=== PATIENT | male | born 1940 | race Caucasian/White ===

== ENCOUNTER 2023-03-26 19:53 | Emergency (ER) | payer OTHER ==
[~2023-03-26] VITALS: Ht 182.9 cm; Wt 176.0 kg
[2023-03-26 20:36] LABS: Basophils # (auto) 0.1 10 ^3/uL (0-0.2); Basophils % (auto) 0.9 % (0.0-2.0); Eosinophils # (auto) 0.2 10 ^3/uL (0-0.8); Eosinophils % (auto) 1.6 % (0.0-7.0); Hemoglobin 13.8 g/dL (13.5-17.5); Lymphocytes # (auto) 2.8 10 ^3/uL (0.4-5.4); Lymphocytes % (auto) 28.9 % (10.0-50.0); Mean Corpuscular Hemoglobin 31.2 pg (28.0-32.0); Mean Corpuscular Volume 94.8 fL (80.0-100.0); Monocytes # (auto) 0.8 10 ^3/uL (0-1.3); Monocytes % (auto) 8.4 % (0.0-12.0); Neutrophils # (auto) 5.8 10 ^3/uL (1.6-8.6); Neutrophils % (auto) 60.2 % (37.0-80.0); Red Blood Cells 4.43 10^6/uL (4.5-5.90); Red Cell Distribution Width 15.9 % (11.8-14.3); White Blood Cell 9.6 10^3/uL (4.4-10.8)
[2023-03-26 20:44] LABS: Urine Bacteria NONE SEEN /hpf (None Seen); Urine Blood Negative /uL (Negative); Urine Clarity Clear (Clear); Urine Color Yellow (Yellow); Urine Hyaline Cast FEW /lpf (0 - 2); Urine Protein, UAD Negative (Negative); Urine Specific Gravity 1.018 (1.001-1.035); Urine Urobilinogen Normal (Negative); Urine WBC <1 /hpf (0 - 3)
[2023-03-26 21:05] LABS: Alanine Aminotransferase 14 U/L (7-40); Albumin 4.2 g/dL (3.2-4.8); Alkaline Phosphatase 137 U/L (46-116); Anion Gap 6.3 (5-15); Aspartate Aminotransferase 10 U/L (13-40); BUN/Creatinine Ratio 22.4 (10.0-20.0); Bilirubin, Total 0.4 mg/dL (0.2-1.0); Blood Urea Nitrogen 36 mg/dL (9-23); Calcium 9.2 mg/dL (8.5-10.1); Carbon Dioxide 28.7 mmol/L (20-30); Chloride 109 mmol/L (98-107); Glucose 121 mg/dL (74-106); Magnesium 2.3 mg/dL (1.6-2.6); Sodium 144 mmol/L (136-145); Total Protein 6.5 g/dL (5.7-8.2)
[2023-03-27 00:25] VITALS: BP 115/55; PULSE 80; RESP 18; TEMP 98.3; O2SAT 94
== END 2023-03-27 02:24 | disposition home or self-care (01) ==
LOC: ER 19:53
DX: R07.89 Other chest pain (principal); E11.22 Type 2 diabetes mellitus with diabetic chronic kidney disease; I12.9 Hypertensive chronic kidney disease with stage 1 through stage 4 chronic kidney disease, or unspecified chronic kidney disease; N18.9 Chronic kidney disease, unspecified; Z95.0 Presence of cardiac pacemaker
CPT/HCPCS: 36415; 71046; 80053; 81001; 83735; 84443; 84484; 85025; 93005

== ENCOUNTER 2023-11-30 07:21 | Inpatient (IN) | payer OTHER ==
[~2023-11-30] VITALS: Ht 182.9 cm; Wt 85.6 kg
[2023-11-30 07:48] LABS: Basophils # (auto) 0 10 ^3/uL (0-0.2); Basophils % (auto) 0.4 % (0.0-2.0); Eosinophils # (auto) 0 10 ^3/uL (0-0.8); Eosinophils % (auto) 0.1 % (0.0-7.0); Hematocrit 41.2 % (41.0-53.0); Hemoglobin 13.5 g/dL (13.5-17.5); Lymphocytes # (auto) 1.7 10 ^3/uL (0.4-5.4); Lymphocytes % (auto) 14.2 % (10.0-50.0); Mean Corpuscular Hgb Conc. 32.7 g/dL (32.0-36.0); Mean Corpuscular Volume 94.7 fL (80.0-100.0); Monocytes # (auto) 1.6 10 ^3/uL (0-1.3); Monocytes % (auto) 13.4 % (0.0-12.0); Neutrophils # (auto) 8.8 10 ^3/uL (1.6-8.6); Neutrophils % (auto) 71.9 % (37.0-80.0); Red Blood Cells 4.35 10^6/uL (4.5-5.90); Red Cell Distribution Width 15.4 % (11.8-14.3); White Blood Cell 12.2 10^3/uL (4.4-10.8)
[2023-11-30 08:17] LABS: Alanine Aminotransferase 12 U/L (7-40); Alkaline Phosphatase 94 U/L (46-116); Aspartate Aminotransferase 27 U/L (13-40); BUN/Creatinine Ratio 13.6 (10.0-20.0); Bilirubin, Total 0.6 mg/dL (0.2-1.0); Blood Urea Nitrogen 24 mg/dL (9-23); Calcium 8.8 mg/dL (8.5-10.1); Chloride 112 mmol/L (98-107); Glucose 197 mg/dL (74-106); Potassium 3.7 mmol/L (3.5-5.1); Sodium 144 mmol/L (136-145)
[2023-11-30 08:18] LABS: Total Protein 6.6 g/dL (5.7-8.2)
[2023-11-30] MEDS: ENOXAPARIN SOD 100 MG/1 ML SYRINGE SC ONE (08:45)
[2023-11-30 08:46] LABS: Anion Gap 8 (5-15); Carbon Dioxide 24 mmol/L (20-30)
[2023-11-30] MEDS: ALBUTEROL SULF 2.5 MG/0.5ML(0.5%) NEB SOLN NEB ONE (08:50)
[2023-11-30] MEDS: IPRATROPIUM BROM 0.5 MG/2.5ML INH SOL NEB ONE (08:50)
[2023-11-30] MEDS: methylPREDNISolone SOD SUCC 125 MG/2 ML VL IV ONE (09:13)
[2023-11-30] MEDS: AZITHROMYCIN 500MG/ 250ML 250 ML IV ONE (09:13)
[2023-11-30 09:31] VITALS: PULSE 78; RESP 26; O2SAT 91
[2023-11-30] MEDS: PIPERACILLIN-TAZOB 3.375GM 100 ML IV ONE (09:55)
[2023-11-30] MEDS ORDERED: DEXTROSE (50%) 50ML SYRG IV PRN ×2 (12:00→12:15)
[2023-11-30] MEDS ORDERED: IPRATROPIUM BROM 0.5 MG/2.5ML INH SOL NEB PRN ×2 (12:00→12:15)
[2023-11-30] MEDS ORDERED: MORPHINE SULFATE INJ 2 MG/ml SYRG IV PRN ×2 (12:00→12:15)
[2023-11-30] MEDS ORDERED: ALBUTEROL SULF 2.5 MG/0.5ML(0.5%) NEB SOLN NEB PRN ×2 (12:00→12:15)
[2023-11-30] MEDS ORDERED: NITROGLYCERIN 0.4 MG SL TAB SL PRN ×2 (12:00→12:15)
[2023-11-30] MEDS ORDERED: TEMAZEPAM 15 MG CAP PO PRN ×2 (12:15→12:30)
[2023-11-30] MEDS ORDERED: ACETAMINOPHEN 325 MG TAB PO PRN ×2 (12:15→12:30)
[2023-11-30] MEDS ORDERED: LEVOTHYROXINE SODIUM 50 MCG TAB PO ONE (12:15)
[2023-11-30] MEDS ORDERED: amLODIPine BESYLATE 5 MG TAB PO ONE (12:15)
[2023-11-30] MEDS ORDERED: ONDANSETRON HCL 4 MG/2 ML VIAL IV PRN ×2 (12:15→12:30)
[2023-11-30 12:45] VITALS: BP 127/54; PULSE 72; RESP 27; TEMP 98.8; O2SAT 93
[2023-11-30] MEDS: LEVOTHYROXINE SODIUM 50 MCG TAB PO ONE (13:05)
[2023-11-30] MEDS: amLODIPine BESYLATE 5 MG TAB PO ONE (13:08)
[2023-11-30] MEDS ORDERED: InsuLIN REG 1unit/0.01ml Soln (100units/ml) SC SCH (17:00)
[2023-11-30] MEDS ORDERED: ACCU-CHEK COMFORT CURVE STRIP VI SCH (17:00)
[2023-11-30] MEDS: InsuLIN REG 1unit/0.01ml Soln (100units/ml) SC SCH (17:46)
[2023-11-30] MEDS: ACCU-CHEK COMFORT CURVE STRIP VI SCH (17:48)
[2023-11-30 18:00] VITALS: O2SAT 94
[2023-11-30] MEDS ORDERED: FUROSEMIDE 40 MG/4 ML VIAL IV SCH (18:00)
[2023-11-30] MEDS: FUROSEMIDE 40 MG/4 ML VIAL IV SCH (18:23)
[2023-11-30] MEDS ORDERED: methylPREDNISolone SOD SUCC 40 MG/ML VL IV SCH (22:00)
[2023-11-30] MEDS ORDERED: ATORVASTATIN 20 MG TAB PO SCH (22:00)
[2023-11-30] MEDS ORDERED: APIXABAN 2.5 MG TAB PO SCH (22:00)
[2023-11-30] MEDS ORDERED: CARVEDILOL 3.125 MG TAB PO SCH (22:00)
[2023-11-30] MEDS: ATORVASTATIN 20 MG TAB PO SCH (23:10)
[2023-11-30] MEDS: APIXABAN 2.5 MG TAB PO SCH (23:11)
[2023-11-30] MEDS: methylPREDNISolone SOD SUCC 40 MG/ML VL IV SCH (23:14)
[2023-11-30] MEDS: CARVEDILOL 3.125 MG TAB PO SCH (23:14)
[2023-12-01] VITALS (10 sets, daily range): BP systolic 104–122; BP diastolic 59–78; PULSE 65–94; RESP 18–20; TEMP 97.6–98.6; O2SAT 92–100
[2023-12-01] MEDS ORDERED: LEVOTHYROXINE SODIUM 50 MCG TAB PO SCH (07:00)
[2023-12-01] MEDS: cefTRIAXone 1GM/50ML D5W 50 ML IV SCH (07:19)
[2023-12-01] MEDS: LEVOTHYROXINE SODIUM 50 MCG TAB PO SCH (07:21)
[2023-12-01] MEDS: PANTOPRAZOLE 40 MG TAB PO SCH (07:21)
[2023-12-01] MEDS: amLODIPine BESYLATE 5 MG TAB PO SCH (07:24)
[2023-12-01] MEDS: AZITHROMYCIN 500MG/ 250ML 250 ML IV SCH (07:28)
[2023-12-01 07:54] LABS: Basophils # (auto) 0 10 ^3/uL (0-0.2); Eosinophils # (auto) 0 10 ^3/uL (0-0.8); Hematocrit 40.5 % (41.0-53.0); Hemoglobin 13.4 g/dL (13.5-17.5); Lymphocytes # (auto) 1.7 10 ^3/uL (0.4-5.4); Lymphocytes % (auto) 13.1 % (10.0-50.0); Mean Corpuscular Hemoglobin 31.5 pg (28.0-32.0); Mean Corpuscular Volume 95.4 fL (80.0-100.0); Monocytes # (auto) 0.5 10 ^3/uL (0-1.3); Monocytes % (auto) 4.1 % (0.0-12.0); Neutrophils # (auto) 10.6 10 ^3/uL (1.6-8.6); Neutrophils % (auto) 82.8 % (37.0-80.0); Red Blood Cells 4.24 10^6/uL (4.5-5.90); Red Cell Distribution Width 15.2 % (11.8-14.3); White Blood Cell 12.8 10^3/uL (4.4-10.8)
[2023-12-01 08:14] LABS: Alanine Aminotransferase 13 U/L (7-40); Albumin 3.9 g/dL (3.2-4.8); Alkaline Phosphatase 89 U/L (46-116); Anion Gap 5 (5-15); Aspartate Aminotransferase 24 U/L (13-40); BUN/Creatinine Ratio 17.5 (10.0-20.0); Bilirubin, Total 0.3 mg/dL (0.2-1.0); Calcium 9.1 mg/dL (8.5-10.1); Carbon Dioxide 27 mmol/L (20-30); Chloride 112 mmol/L (98-107); Cholesterol 169 mg/dL (< 200); Glucose 209 mg/dL (74-106); HDL Cholesterol 36 mg/dL (40-59); LDL Cholesterol 108 mg/dL (< 100); Potassium 5.2 mmol/L (3.5-5.1); Sodium 144 mmol/L (136-145); Total Protein 6.5 g/dL (5.7-8.2); Triglycerides 135 mg/dL (< 150)
[2023-12-01 08:19] LABS: Blood Urea Nitrogen 34 mg/dL (9-23)
[2023-12-01] MEDS ORDERED: cefTRIAXone 1GM/50ML D5W 50 ML IV SCH (09:00)
[2023-12-01 09:17] LABS: Magnesium 2.4 mg/dL (1.6-2.6)
[2023-12-01] MEDS ORDERED: amLODIPine BESYLATE 5 MG TAB PO SCH (10:00)
[2023-12-01] MEDS ORDERED: PANTOPRAZOLE 40 MG TAB PO SCH (10:00)
[2023-12-01] MEDS ORDERED: ENOXAPARIN SOD 100 MG/1 ML SYRINGE SC SCH (10:00)
[2023-12-01] MEDS ORDERED: AZITHROMYCIN 500MG/ 250ML 250 ML IV SCH (10:00)
[2023-12-01] MEDS: FUROSEMIDE 20 MG TAB PO SCH (12:41)
[2023-12-01 14:28] LABS: Base Excess -0.5 mmol/L (-2.0-2.0)
[2023-12-02] VITALS (9 sets, daily range): BP systolic 105–132; BP diastolic 64–72; PULSE 67–77; RESP 18–20; TEMP 97.7–97.9; O2SAT 90–96
[2023-12-02 09:49] LABS: Base Excess 0.4 mmol/L (-2.0-2.0)
[2023-12-03] VITALS (10 sets, daily range): BP systolic 127–155; BP diastolic 70–81; PULSE 63–71; RESP 18–20; TEMP 79.9–98; O2SAT 90–97
[2023-12-03] MEDS ORDERED: LEVO150T10 PO (15:55)
[2023-12-03] MEDS ORDERED: SITA50TA PO (15:55)
[2023-12-04] VITALS (9 sets, daily range): BP systolic 130–157; BP diastolic 57–75; PULSE 64–83; RESP 16–19; TEMP 97.4–97.8; O2SAT 91–99
[2023-12-05] VITALS (7 sets, daily range): BP systolic 136–158; BP diastolic 63–83; PULSE 71–75; RESP 16–20; TEMP 97.1–98.6; O2SAT 95–96
[2023-12-05] MEDS ORDERED: APIX2.5T PO (12:01)
[2023-12-05] MEDS ORDERED: METH4PAK PO (12:01)
[2023-12-05] MEDS ORDERED: ATOR20TA50 PO (12:01)
[2023-12-05] MEDS ORDERED: CARV-214 PO (12:01)
[2023-12-05] MEDS ORDERED: AML5T PO (12:01)
== END 2023-12-05 16:55 | disposition home or self-care (01) | DRG 189 ==
LOC: EDUNIT# 07:21 → ER 07:21 → EDBD 07:21 → ER 12:03 → TELE 12:03 → TELE-EAST 22:00
PROVIDERS: ADMIT Internal Medicine Geriatric Medicine; ATTEND Internal Medicine Geriatric Medicine
PROC: 4B02XSZ Measurement of Cardiac Pacemaker, External Approach (ICD-10-PCS; principal; 2023-12-02)
DX: J96.21 Acute and chronic respiratory failure with hypoxia (principal); I21.A1 Myocardial infarction type 2; J44.1 Chronic obstructive pulmonary disease with (acute) exacerbation; I48.92 Unspecified atrial flutter; J96.22 Acute and chronic respiratory failure with hypercapnia; I48.91 Unspecified atrial fibrillation; H54.61 Unqualified visual loss, right eye, normal vision left eye; E78.5 Hyperlipidemia, unspecified; E11.22 Type 2 diabetes mellitus with diabetic chronic kidney disease; E03.9 Hypothyroidism, unspecified; C61 Malignant neoplasm of prostate; I08.1 Rheumatic disorders of both mitral and tricuspid valves; N18.9 Chronic kidney disease, unspecified; Z79.899 Other long term (current) drug therapy; Z95.0 Presence of cardiac pacemaker; Z95.2 Presence of prosthetic heart valve
CPT/HCPCS: 36415; 36600; 71045; 78582; 80053; 80061; 82565; 82805; 82962; 83605; 83735; 83880; 84443; 84484; 85025; 85379; 87040; 93005; 93306; 94640; 96365; 96375; G0378; J1815; J2543

== ENCOUNTER 2024-10-13 09:54 | Inpatient (IN) | payer OTHER ==
[~2024-10-13] VITALS: Ht 177.8 cm; Wt 92.6 kg
[2024-10-13] MEDS: ALBUTEROL SULF 2.5 MG/0.5ML(0.5%) NEB SOLN ONE (09:43)
[~2024-10-13 09:54] MED LIST: AML5T PO; APIX2.5T PO; ATOR20TA50 PO; CARV-214 PO; LEVO150T10 PO; METH4PAK PO; SITA50TA PO
--- NOTE | 2024-10-13 10:21 | ED.PDOC ---
SOB-HPI HPI Comments 84-year-old male brought in by EMS presents with a chief complaint of SOB x 5 days with associated wheezing. Patient was seen at [facility] and was told to go to the ER due to his saturation levels. Patient was sating at 80% on room air according to EMS. Patient was given a breathing treatment of Albuterol and Atrovent and is not working so hard to breathe according to EMS. Patient is now sating at 83% on room air. Patient is on Eliquis for A-Fib. Chief Complaint: Shortness of Breath Time Seen by MD: 10:53 Primary Care Provider: KERA Reviewed notes: Medications, Allergies Information Source: Patient Mode of Arrival: Ambulatory Severity: Moderate Timing: Days Duration: Since onset Context: At Rest PE Risk Factors: None History of: COPD, CHF Prehospital treatment: Breathing Tx Past Medical History PAST MEDICAL HISTORY: CKF, COPD, DM, HTN, Thyroid Surgical History: Pacemaker Family History Family History: Reviewed,noncontributory to illness Social History Smoker: Non-Smoker Alcohol: Denies ETOH Use Drugs: Denies Drug Use Lives In: Home Constitutional: denies: chills, diaphoresis, fatigue, fever, malaise, sweats, weakness, others EENTM: denies: blurred vision, double vision, ear bleeding, ear discharge, ear drainage, ear pain, ear ringing, eye pain, eye redness, hearing loss, mouth pain, mouth swelling, nasal discharge, nose bleeding, nose congestion, nose pain, photophobia, tearing, throat pain, throat swelling, voice changes, others Respiratory: reports: shortness of breath, wheezing; denies: cough, hemoptysis, orthopnea, SOB at rest, SOB with excertion, stridor, others Cardiovascular: denies: chest pain, dizzy spells, diaphoresis, Dyspnea on exertion, edema, irregular heart beat, left arm pain, lightheadedness, palpitations, PND, syncope, others Gastrointestinal: denies: abdomen distended, abdominal pain, blood streaked bowels, constipated, diarrhea, dysphagia, difficulty swallowing, hematemesis, melena, nausea, poor appetite, poor fluid intake, rectal bleeding, rectal pain, vomiting, others Genitourinary: denies: burning, dysuria, flank pain, frequency, hematuria, incontinence, penile discharge, penile sore, pain, testicle pain, testicle swelling, urgency, others Neurological: denies: dizziness, fainting, headache, left sided numbness, left sided weakness, numbness, paresthesia, pre-existing deficit, right sided numbness, right sided weakness, seizure, speech problems, tingling, tremors, weakness, others Musculoskeletal: denies: back pain, gout, joint pain, joint swelling, muscle pain, muscle stiffness, neck pain, others Integumetry: denies: bruises, change in color, change in hair/nails, dryness, laceration, lesions, lumps, rash, wounds, others Allergic/Immunocompromised: denies: Difficulty Healing, Frequent Infections, Hi ves, Itching, others Hematologic/Lymphatic: denies: anemia, blood clots, easy bleeding, easy bruising, swollen glands, others Endocrine: denies: excessive hunger, excessive sweating, excessive thirst, excessive urination, flushing, intolerance to cold, intolerance to heat, unexplained weight gain, unexplained weight loss, others Psychiatric: denies: anxiety, bipolar disorder, depression, hopeless, panic disorder, schizophrenia, sleepless, suicidal, others All Other Systems: Reviewed and Negative Physical Exam General Appearance: Moderate Distress, Obese HEENT: NOT DONE Neck: NOT DONE Respiratory: Wheezing Cardiovascular: No Edema, No JVD, No Murmur, No Gallop, Normal Peripheral Pulses, Regular Rate/Rhythm Breast Exam: Deferred Gastrointestinal: No Organomegaly, Non Tender, No Pulsatile Mass, Normal Bowel Sounds, Soft Genitalia: Deferred Pelvic: Deferred Rectal: Deferred Extremities: No calf tenderness, Normal capillary refill, Normal inspection, Normal range of motion, Non-tender, No pedal edema Neurologic: Alert, charcoal unloader II-XII nml as Tested, No Motor Deficits, Normal Affect, Normal Mood, No Sensory Deficits Cerebellar Function: Normal Reflexes: Normal Skin: Dry, Normal Color, Warm Lymphatic: No Adenopathy Was a procedure done? Was a procedure done?: No Differential Dx Differential Diagnosis: Cardiogenic Shock, CHF, COPD, Myocardial infarction, Pneumonia, Sinusitis, URI X-Ray, Labs, Meds, VS Vital Signs Date Time Temp Pulse Resp B/P (MAP) Pulse Ox O2 Delivery O2 Flow Rate FiO2 10/13/24 12:00 97.6 82 24 149/51 (83) 93 97.6 10/13/24 10:57 131/57 10/13/24 10:48 24 94 Nasal Cannula* 3 32 10/13/24 10:25 79 20 95 Nasal Cannula* 3 32 10/13/24 10:25 97.9 79 20 131/57 (81) 95 97.9 10/13/24 10:23 79 18 131/57 (81) 92 10/13/24 10:13 98.2 74 24 134/60 (84) 95 10/13/24 10:10 25 95 Simple Mask* 8 60 10/13/24 10:02 76 Lab Test 10/13/24 11:57 10/13/24 10:40 10/13/24 10:32 Range/Units Troponin I High Sensitivity 10 11 </=54 ng/L Influenza Type A Antigen Negative Negative Influenza Type B Antigen Negative Negative SARS-CoV-2 Antigen (Rapid) Negative NEGATIVE White Blood Count 9.5 4.4-10.8 10^3/uL Red Blood Count 4.42 L 4.5-5.90 10^6/uL Hemoglobin 13.6 13.5-17.5 g/dL Hematocrit 42.0 41.0-53.0 % Mean Corpuscular Volume 94.9 80.0-100.0 fL Mean Corpuscular Hemoglobin 30.8 28.0-32.0 pg Mean Corpuscular Hemoglobin Concent 32.5 32.0-36.0 g/dL Red Cell Distribution Width 15.9 H 11.8-14.3 % Platelet Count 254 140-450 10^3/uL Mean Platelet Volume 7.6 6.9-10.8 fL Neutrophils (%) (Auto) 65.6 37.0-80.0 % Lymphocytes (%) (Auto) 22.0 10.0-50.0 % Monocytes (%) (Auto) 11.0 0.0-12.0 % Eosinophils (%) (Auto) 0.9 0.0-7.0 % Basophils (%) (Auto) 0.5 0.0-2.0 % Neutrophils # (Auto) 6.2 1.6-8.6 10 ^3/uL Lymphocytes # (Auto) 2.1 0.4-5.4 10 ^3/uL Monocytes # (Auto) 1.0 0-1.3 10 ^3/uL Eosinophils # (Auto) 0.1 0-0.8 10 ^3/uL Basophils # (Auto) 0.1 0-0.2 10 ^3/uL Nucleated Red Blood Cells 0.0 % Sodium Level 147 H 136-145 mmol/L Potassium Level 4.0 3.5-5.1 mmol/L Chloride Level 109 H 98-107 mmol/L Carbon Dioxide Level 30 20-31 mmol/L Anion Gap 8 5-15 Blood Urea Nitrogen 33 H 9-23 mg/dL Creatinine 1.68 H 0.700-1.30 mg/dL Glomerular Filtration Rate Calc 39 >90 mL/min BUN/Creatinine Ratio 19.6 10.0-20.0 Serum Glucose 150 H 74-106 mg/dL Calcium Level 9.3 8.7-10.4 mg/dL B-Type Natriuretic Peptide 112.28 0-100 pg/mL Current Medications Medications (Trade) Dose Ordered Sig/Marie Route Start Time Stop Time Status Last Admin Azithromycin (Zithromax Tablet) 500 mg ONCE ONCE PO 10/13/24 10:30 10/13/24 10:46 DC 10/13/24 10:56 Albuterol (Ventolin Medneb) 5 mg ONCE ONCE NEB 10/13/24 10:30 10/13/24 10:46 DC 10/13/24 10:48 Ipratropium [place] (Atrovent Medneb) 0.5 mg ONCE ONCE NEB 10/13/24 10:30 10/13/24 10:46 DC 10/13/24 10:48 Methylprednisolone Sodium Succinate (Solu Medrol) 62.5 mg ONCE ONCE IV 10/13/24 10:30 10/13/24 10:46 DC 10/13/24 10:56 Furosemide (Lasix Injection) 40 mg ONCE ONCE IV 10/13/24 10:30 10/13/24 10:46 DC 10/13/24 10:57 Time of 1ST Reevaluation: 11:13 Reevaluation 1ST: Unchanged Patient Education/Counseling: Diagnosis, Treatment, Prognosis Family Education/Counseling: Diagnosis, Treatment, Prognosis Departure 1 Departure Time of Disposition: 12:54 (Patient presented with acute shortness of breath concerning for acute on chronic COPD Exacerbation, Pneumonia, ACS, CHF, Pneumothorax. Less likely PE, Dissection. Data: 1. I ordered and reviewed the result of at least 3 labs including a CBC, BMP, and Troponin. 2. I independently interpreted the following tests: Chest X-ray shows benign chest .Risk:This patient has a high risk of morbidity due to further diagnostic testing or treatment and may suffer from respiratory or cardiac etiology . Workup reveals a likely COPD Exacerbation and patient should be admitted for further workup. and possible expert consultation.) Impression: Primary Impression: Shortness of breath Additional Impressions: Acute on chronic systolic (congestive) heart failure COPD exacerbation Disposition: ADMITTED INPATIENT Admit to: Med Surg Condition: Serious Critical Care Note Critical Care Time?: Yes Critical care comment: Acute shortness of breath Authorized and Performed by: Velia Sargent MD Total critical care time: Approximately 37 minutes Due to a high probability of clinically significant, life threatening deterioration, the patient required my highest level of preparedness to intervene emergently and I personally spent this critical care time directly and personally managing the patient. This critical care time included obtaining a history; examining the patient; pulse oximetry; ordering and review of studies; arranging urgent treatment with development of a management plan; evaluation of patient's response to treatment; frequent reassessment; and, discussions with other providers. This critical care time was performed to assess and manage the high probability of imminent, life-threatening deterioration that could result in multi-organ failure. It was exclusive of separately billable procedures and treating other patients and teaching time. Please see my other sections and the rest of the note for further information on patient assessment and treatment. Stability Stability form required: No Heart Score Heart Score: Heart Score Response (Comments) Value History Moderate Suspicious 1 EKG Repolarization Disturb 1 Age >65 2 Risk Factors >3 or Hx ASHD 2 Troponin 1-2 x's Normal limit 1 Total 7 I personally scribed for VELIA SARGENT MD ([email or web address]) on 10/13/24 at 10:21. Electronically submitted by Ren Gómez ([email or web address]). VELIA SARGENT MD Oct 13, 2024 10:21
[2024-10-13 10:25] VITALS: PULSE 79; RESP 20; O2SAT 95
[2024-10-13] MEDS: ALBUTEROL SULF 2.5 MG/0.5ML(0.5%) NEB SOLN NEB ONE (10:48)
[2024-10-13] MEDS: IPRATROPIUM BROM 0.5 MG/2.5ML INH SOL NEB ONE (10:48)
[2024-10-13] MEDS: methylPREDNISolone SOD SUCC 125 MG/2 ML VL IV ONE (10:56)
[2024-10-13] MEDS: AZITHROMYCIN 250 MG TAB PO ONE (10:56)
[2024-10-13] MEDS: FUROSEMIDE 40 MG/4 ML VIAL IV ONE (10:57)
[2024-10-13 10:59] LABS: Basophils # (auto) 0.1 10 ^3/uL (0-0.2); Basophils % (auto) 0.5 % (0.0-2.0); Eosinophils # (auto) 0.1 10 ^3/uL (0-0.8); Eosinophils % (auto) 0.9 % (0.0-7.0); Hemoglobin 13.6 g/dL (13.5-17.5); Lymphocytes # (auto) 2.1 10 ^3/uL (0.4-5.4); Mean Corpuscular Hemoglobin 30.8 pg (28.0-32.0); Mean Corpuscular Hgb Conc. 32.5 g/dL (32.0-36.0); Mean Corpuscular Volume 94.9 fL (80.0-100.0); Neutrophils # (auto) 6.2 10 ^3/uL (1.6-8.6); Neutrophils % (auto) 65.6 % (37.0-80.0); Platelet Count (auto) 254 10^3/uL (140-450); Red Blood Cells 4.42 10^6/uL (4.5-5.90); Red Cell Distribution Width 15.9 % (11.8-14.3); White Blood Cell 9.5 10^3/uL (4.4-10.8)
--- NOTE | 2024-10-13 11:03 | DVH ---
INDICATION: sob TECHNIQUE: Frontal view of the chest. COMPARISON: XY CHEST PORTABLE on DOS: 11/30/23, XY CHEST PORTABLE on DOS: 11/30/23 FINDINGS: Heart size is enlarged. Pacer leads are present. Prominent bronchovascular markings in the lower lung zones IMPRESSION: 1. Cardiomegaly. Mild congestive changes versus bibasilar infiltrates. Correlate clinically
[2024-10-13 11:09] LABS: Anion Gap 8 (5-15); Calcium 9.3 mg/dL (8.7-10.4); Carbon Dioxide 30 mmol/L (20-31)
[2024-10-13 11:11] LABS: Chloride 109 mmol/L (98-107); Sodium 147 mmol/L (136-145)
[2024-10-13 11:14] LABS: BUN/Creatinine Ratio 19.6 (10.0-20.0)
[2024-10-13 11:23] LABS: COVID19 ANTIGEN SOFIA FIA NEGATIVE (NEGATIVE); Rapid Influenza A Negative (Negative); Rapid Influenza B Negative (Negative)
[2024-10-13 11:30] LABS: Glucose 150 mg/dL (74-106)
[2024-10-13 11:31] LABS: Blood Urea Nitrogen 33 mg/dL (9-23)
[2024-10-13] MEDS ORDERED: ONDANSETRON HCL 4 MG/2 ML VIAL IV PRN (13:45)
[2024-10-13] MEDS ORDERED: ACETAMINOPHEN 325 MG TAB PO PRN (13:45)
[2024-10-13] MEDS ORDERED: MORPHINE SULFATE INJ 2 MG/ml SYRG IV PRN (13:45)
[2024-10-13] MEDS ORDERED: NITROGLYCERIN 0.4 MG SL TAB SL PRN (13:45)
--- NOTE | 2024-10-13 13:46 | DVHHP2 ---
History of Present Illness Reason for Visit: Shortness of breaths History of Present Illness 84-year-old male with a history of diastolic heart failure, COPD, chronic respiratory failure on home O2, type 2 diabetes, hypertension, hypothyroidism, chronic kidney disease came with chief complaint of shortness of breaths and cough for about 4 days He uses oxygen at 2 L nasal cannula at home but he was hypoxic to the 80s on oxygen He has diffuse wheezing Cardiovascular: AFIB, CHF, HTN, hyperipidemia Pulmonary: COPD Renal/: Chronic renal insuff Endocrine: Diabetes, Hypothyroidism Review of Systems Respiratory: Cough, Shortness of breath, Wheezing Allergies: Coded Allergies: NO KNOWN ALLERGIES (Unverified , 11/30/23) Exam Vital Signs Vital Signs Date Time Temp Pulse Resp B/P (MAP) Pulse Ox O2 Delivery O2 Flow Rate FiO2 10/13/24 12:00 97 10/13/24 12:00 97.6 24 149/51 (83) 93 97.6 10/13/24 10:48 Nasal Cannula* 3 32 General Appearance: Alert, moderate distress Respiratory: Other (Diffuse wheezing) Cardiovascular: Other (Irregularly irregular) Abdominal: Normal bowel sounds, Soft, No tenderness Extremities: No edema Labs/Xrays Labs Test 10/13/24 12:45 10/13/24 11:57 10/13/24 10:40 10/13/24 10:32 Range/Units Troponin I High Sensitivity 10 </=54 ng/L Influenza Type A Antigen Negative Negative Influenza Type B Antigen Negative Negative SARS-CoV-2 Antigen (Rapid) Negative NEGATIVE White Blood Count 9.5 4.4-10.8 10^3/uL Red Blood Count 4.42 L 4.5-5.90 10^6/uL Hemoglobin 13.6 13.5-17.5 g/dL Hematocrit 42.0 41.0-53.0 % Mean Corpuscular Volume 94.9 80.0-100.0 fL Mean Corpuscular Hemoglobin 30.8 28.0-32.0 pg Mean Corpuscular Hemoglobin Concent 32.5 32.0-36.0 g/dL Red Cell Distribution Width 15.9 H 11.8-14.3 % Platelet Count 254 140-450 10^3/uL Mean Platelet Volume 7.6 6.9-10.8 fL Neutrophils (%) (Auto) 65.6 37.0-80.0 % Lymphocytes (%) (Auto) 22.0 10.0-50.0 % Monocytes (%) (Auto) 11.0 0.0-12.0 % Eosinophils (%) (Auto) 0.9 0.0-7.0 % Basophils (%) (Auto) 0.5 0.0-2.0 % Neutrophils # (Auto) 6.2 1.6-8.6 10 ^3/uL Lymphocytes # (Auto) 2.1 0.4-5.4 10 ^3/uL Monocytes # (Auto) 1.0 0-1.3 10 ^3/uL Eosinophils # (Auto) 0.1 0-0.8 10 ^3/uL Basophils # (Auto) 0.1 0-0.2 10 ^3/uL Nucleated Red Blood Cells 0.0 % Sodium Level 147 H 136-145 mmol/L Potassium Level 4.0 3.5-5.1 mmol/L Chloride Level 109 H 98-107 mmol/L Carbon Dioxide Level 30 20-31 mmol/L Anion Gap 8 5-15 Blood Urea Nitrogen 33 H 9-23 mg/dL Creatinine 1.68 H 0.700-1.30 mg/dL Glomerular Filtration Rate Calc 39 >90 mL/min BUN/Creatinine Ratio 19.6 10.0-20.0 Serum Glucose 150 H 74-106 mg/dL Calcium Level 9.3 8.7-10.4 mg/dL B-Type Natriuretic Peptide 112.28 0-100 pg/mL Assessment/Plan Assessment/Plan Acute hypoxic respiratory failure COPD exacerbation Chronic respiratory failure on home O2 Diastolic heart failure Type 2 diabetes Hypertension Hypothyroidism Chronic kidney disease Hypernatremia Paroxysmal atrial fibrillation Plan Admit to telemetry Oxygen Solu-Medrol IV IV Zithromax Med neb treatments as needed Resume the home medications Monitor closely Full code Discussed with the patient and his at the bedside Plan discussed with: Patient Date of Service: Oct 13, 2024 Billing Provider: JAMES JAMES MD Common Visit Codes: NOT BILLABLE JAMES JAMES MD Oct 13, 2024 13:46
[2024-10-13 13:56] VITALS: BP 128/57; PULSE 72; RESP 20; TEMP 98.7; O2SAT 92
[2024-10-13] MEDS ORDERED: DEXTROSE (50%) 50ML SYRG IV PRN (14:00)
[2024-10-13 14:24] LABS: Urine Bacteria FEW /hpf (None Seen); Urine Blood Negative /uL (Negative); Urine Clarity Clear (Clear); Urine Color Light-Yellow (Yellow); Urine Hyaline Cast FEW /lpf (0 - 2); Urine Protein, UAD Negative (Negative); Urine Specific Gravity 1.009 (1.001-1.035); Urine Squamous Epithelial Cell FEW /hpf (<5); Urine Urobilinogen Normal (Negative); Urine WBC 1 /HPF (0-3)
[2024-10-13] MEDS: ACCU-CHEK COMFORT CURVE STRIP VI SCH (17:21)
[2024-10-13] MEDS: InsuLIN REG 1unit/0.01ml Soln (100units/ml) SC SCH ×2 (17:24→22:08)
--- NOTE | 2024-10-13 18:51 | ECG ---
[facility] Test Date: 2024-10-13 Test Time: 10:02:32 Pat Name: JAN RASMUSSEN Department: er Room: 0270T Gender: M Medical Insurance Verifier: harris : [id number] Requested By: VELIA BADILLO Order Number: [id number] Reading MD: Kvng Whyte Measurements Intervals [place] Rate: 76 P: 63 [place]: 190 QRS: 5 QRSD: 148 T: 121 QT: 428 QTc: 482 Interpretive Statements Sinus rhythm Left bundle branch block Electronically Signed On 10-16-2024 18:54:20 PDT by Kvng Whyte Please click the below link to view image of tracing.
[2024-10-13 19:07] VITALS: O2SAT 92
[2024-10-13 20:05] VITALS: PULSE 81; RESP 18; O2SAT 96
[2024-10-13] MEDS: APIXABAN 2.5 MG TAB PO SCH (22:06)
[2024-10-13] MEDS: methylPREDNISolone SOD SUCC 40 MG/ML VL IV SCH (22:07)
[2024-10-13] MEDS: ATORVASTATIN 20 MG TAB PO SCH (22:07)
[2024-10-14] VITALS (17 sets, daily range): BP systolic 130–145; BP diastolic 53–72; PULSE 67–98; RESP 16–20; TEMP 97.5–97.9; O2SAT 93–98
[2024-10-14] MEDS: LEVOTHYROXINE SODIUM 50 MCG TAB PO SCH (05:02)
[2024-10-14] MEDS: PANTOPRAZOLE 40 MG TAB PO SCH (05:03)
[2024-10-14 06:15] LABS: Calcium 9.6 mg/dL (8.7-10.4); Potassium 4.1 mmol/L (3.5-5.1); Sodium 144 mmol/L (136-145)
[2024-10-14 06:16] LABS: Anion Gap 10 (5-15); Carbon Dioxide 26 mmol/L (20-31)
[2024-10-14 06:21] LABS: BUN/Creatinine Ratio 22.2 (10.0-20.0); Magnesium 2.5 mg/dL (1.6-2.6)
[2024-10-14 06:36] LABS: Blood Urea Nitrogen 40 mg/dL (9-23); Chloride 108 mmol/L (98-107); Glucose 167 mg/dL (74-106)
[2024-10-14] MEDS: IPRATROPIUM BROM 0.5 MG/2.5ML INH SOL NEB PRN (06:51)
[2024-10-14] MEDS: ALBUTEROL SULF 2.5 MG/0.5ML(0.5%) NEB SOLN NEB PRN (06:51)
[2024-10-14] MEDS: AZITHROMYCIN 500MG/ 250ML 250 ML IV SCH (10:14)
--- NOTE | 2024-10-14 13:03 | DVHPN2 ---
Subjective Feels somewhat better He is still congested and having some cough but not able to produce any sputum He is on 3 L nasal cannula Changes from previous H/P or p: Changes Respiratory: Cough, Shortness of breath, Wheezing Objective Vitals Vital Signs Date Time Temp Pulse Resp B/P (MAP) Pulse Ox O2 Delivery O2 Flow Rate FiO2 10/14/24 12:35 97.5 76 16 132/53 (79) 95 97.5 10/14/24 10:12 Nasal Cannula* 3 32 Intake/Output Intake and Output 10/14/24 07:00 Intake Total 400 ml Output Total 0 ml Balance 400 ml Intake Oral 400 ml Output Urine Total 0 ml General Appearance: Alert, Oriented X3, mild distress Lungs: Other (Diffuse wheezing) Cardiovascular: Regular rate, Normal S1 Abdomen: Normal bowel sounds, Soft, No tenderness Medications Current Medications Medications Dose Ordered Sig/Marie Route Start Time Stop Time Status Last Admin Dose Admin Nitroglycerin 0.4 mg Q5MINP PRN SL 10/13/24 13:45 Morphine Sulfate 2 mg Q30M PRN IV 10/13/24 13:45 Albuterol 2.5 mg Q4HPRN PRN NEB 10/13/24 13:45 10/14/24 10:10 2.5 MG Ipratropium [place] 0.5 mg Q4HPRN PRN NEB 10/13/24 13:45 10/14/24 10:10 0.5 MG Methylprednisolone Sodium Succinate 40 mg BID IV 10/13/24 22:00 10/14/24 10:09 40 MG Azithromycin 250 ml @ 125 mls/hr DAILY IV 10/14/24 10:00 10/14/24 10:14 125 MLS/HR Pantoprazole Sodium 40 mg DAILY@0600 PO 10/14/24 06:00 10/14/24 05:03 40 MG Ondansetron HCl 4 mg Q4HPRN PRN IV 10/13/24 13:45 Acetaminophen 650 mg Q6HP PRN PO 10/13/24 13:45 Apixaban 2.5 mg BID PO 10/13/24 22:00 10/14/24 10:09 2.5 MG Atorvastatin Calcium 80 mg HS PO 10/13/24 22:00 10/13/24 22:07 80 MG Levothyroxine Sodium 150 mcg QAM@0600 PO 10/14/24 06:00 10/14/24 05:02 150 MCG Diagnostic Test (Pha) 1 strip ACHS 10/13/24 17:00 10/14/24 11:30 1 STRIP Insulin Human Regular HS SC 10/13/24 22:00 10/13/24 22:08 8 UNITS Insulin Human Regular AC SC 10/13/24 17:00 10/14/24 12:03 9 UNITS Dextrose 50 ml UD PRN IV 10/13/24 14:00 Laboratory Results Laboratory Tests 10/13/24 10:32 10/14/24 05:39 Chemistry Test 10/14/24 05:39 Calcium Level 9.6 mg/dL (8.7-10.4) Magnesium Level 2.5 mg/dL (1.6-2.6) HgA1c, TSH Test 10/14/24 05:39 Thyroid Stimulating Hormone (TSH) 0.37 uIU/mL (0.55-4.78) L Urinalysis Test 10/13/24 12:45 Urine Color Light-yellow (Yellow) Urine Clarity Clear (Clear) Urine pH 5.0 (5.0-9.0) Urine Specific [place] 1.009 (1.001-1.035) Urine Protein Negative (Negative) Urine Ketones Negative (Negative) Urine Blood Negative /uL (Negative) Urine Nitrite Negative (Negative) Urine Bilirubin Negative (Negative) Urine Urobilinogen Normal mg/dL (Negative) Urine Leukocyte Esterase Negative /uL (Negative) Urine RBC None seen /hpf (0 - 3) Urine Microscopic WBC 1 /HPF (0-3) Urine Squamous Epithelial Cells Few /hpf (<5) Urine Bacteria Few /hpf (None Seen) H Urine Hyaline Casts Few /lpf (0 - 2) Urine Glucose Normal mg/dL (Normal) Assessment/Plan Assessment/Plan Acute hypoxic respiratory failure COPD exacerbation Chronic respiratory failure on home O2 Diastolic heart failure Type 2 diabetes Hypertension Hypothyroidism Chronic kidney disease Hypernatremia Paroxysmal atrial fibrillation Plan Admit to telemetry Oxygen Solu-Medrol IV IV Zithromax Med neb treatments as needed Resume the home medications Monitor closely Full code Discussed with the patient and his at the bedside 10/14/2024: Continue oxygen as needed Med nebs as needed IV Zithromax IV steroids Pulmonary consultation Add Lantus for better blood glucose control Plan discussed with: Patient, Spouse My Orders Orders - JMAES JAMES MD Procedure Category Date Status Time Admit ADMIT 10/13/24 Transmitted 13:31 Nitroglycerin PHA 10/13/24 In Process Sublingual (Ntrostat 13:45 Morphine Sulfate PHA 10/13/24 In Process Injection 13:45 Stat Ekg For Chest BEN 10/13/24 In Process Pain 13:31 Notify Of Changes BEN 10/13/24 In Process From Base 13:31 Nursing Program Coordinator For BEN 10/13/24 In Process 24 Hours 13:31 Emergency Dysrhythmia BEN 10/13/24 In Process Protocol 13:31 Rhythm Strips Once BEN 10/13/24 In Process Every Shift 13:31 Oxygen By Nasal RT 10/13/24 Transmitted Cannula 13:31 Albuterol Medneb PHA 10/13/24 In Process (Ventolin Medneb) 13:45 Ipratropium Medneb PHA 10/13/24 In Process (Atrovent Medneb) 13:45 Methylprednisolone PHA 10/13/24 In Process Sod Succ (Solu Medrol 22:00 Azithromycin 500mg/ PHA 10/14/24 In Process 250ml (Zithromax 50 10:00 Pantoprazole Tablet PHA 10/14/24 In Process (Protonix Tablet) 06:00 Ondansetron Hcl PHA 10/13/24 In Process (Zofran) 13:45 Acetaminophen Tablet PHA 10/13/24 In Process (Tylenol Tablet) 13:45 Apixaban (Eliquis) PHA 10/13/24 In Process 22:00 Code Status CODE 10/13/24 Transmitted 13:41 Atorvastatin (Lipitor) PHA 10/13/24 In Process 22:00 Levothyroxine Tablet PHA 10/14/24 In Process (Synthroid Tablet) 06:00 Glucose Blood PHA 10/13/24 In Process (Accu-Chek Comfort 17:00 Insulin R (Human) PHA 10/13/24 In Process (Insulin R) 22:00 Insulin R (Human) PHA 10/13/24 In Process (Insulin R) 17:00 Dextrose 50% Syringe PHA 10/13/24 In Process 14:00 *Consult CONS 10/14/24 Transmitted / 12:57 Date of Service: Oct 14, 2024 Billing Provider: JAMES JAMES MD Common Visit Codes: NOT BILLABLE JAMES JAMES MD Oct 14, 2024 13:03
[2024-10-14] MEDS ORDERED: BICA50TA42 PO (14:31)
[2024-10-14] MEDS ORDERED: FURO40TA4 PO (14:36)
[2024-10-14] MEDS ORDERED: LATA0.008 EACHEYE (14:36)
[2024-10-14] MEDS ORDERED: FLUT1AER3 IN (14:36)
[2024-10-14] MEDS: INSULIN LANTUS (GLARGINE) 1 /0.01ml (100units/ml) SC ONE (14:44)
[2024-10-14] MEDS ORDERED: NEBI10TA2 PO (18:26)
[2024-10-14] MEDS: INSULIN LANTUS (GLARGINE) 1 /0.01ml (100units/ml) SC SCH (22:27)
--- NOTE | 2024-10-14 23:22 | DVHINCON2 ---
Date of service: Oct 14, 2024 Referring Physician Barak Hutchinson MD Reason for Consultation Acute on chronic hypoxic respiratory failure and COPD exacerbation. History of Present Illness An 84-year-old man with past medical history of COPD, diastolic CHF, chronic respiratory failure on home O2, type 2 diabetes, hypertension, hypothyroidism, and chronic kidney disease who presented to ED on 10/13/24 with chief complaint of shortness of breath and cough for about 4 days. He uses oxygen at 2 L nasal cannula at home, but was hypoxic to the 80s on oxygen. Patient was also noted to have diffuse wheezing. Patient was admitted for further care, and pulmonary consultation is requested for evaluation and management of acute on chronic hypoxic respiratory failure and COPD exacerbation. Review of Systems: 14-point review of systems negative unless otherwise noted above. Past Medical History: COPD, atrial fibrillation, diastolic CHF, hypertension, hyperlipidemia, chronic renal insufficiency, diabetes, and hypothyroidism Past Surgical History: None Medications: Reviewed. Allergies: No known drug allergies. Family History: No family history of premature CAD. No family history of lung disorders. Social History: Former smoker - quit 20 years ago. No alcohol or illicit drug use. Family History: Patient reports no known family medical history. Allergies: Coded Allergies: NO KNOWN ALLERGIES (Unverified , 11/30/23) Home Meds Active Scripts Methylprednisolone (Medrol Dosepak) 4 Mg Arya, 4 MG PO UD, #21 TAB UAD Prov:BARAK HUTCHINSON MD 12/05/23 Amlodipine Besylate (NORVASC TABLET) 5 Mg Tb, 5 MG PO DAILY for 30 Days, #30 TAB Prov:BARAK HUTCHINSON MD 12/05/23 Carvedilol (COREG) 3.125 Mg Tab, 3.125 MG PO Q12HR for 30 Days, #60 TAB Prov:BARAK HUTCHINSON MD 12/05/23 Atorvastatin Calcium (ATORVASTATIN CALCIUM) 20 Mg Tab, 80 MG PO HS for 30 Days, #120 TAB Prov:BARAK HUTCHINSON MD 12/05/23 Apixaban Base (ELIQUIS) 2.5 Mg Tab, 2.5 MG PO BID for 30 Days, #60 TAB Prov:BARAK HUTCHINSON MD 12/05/23 Reported Medications Nebivolol Hcl (Bystolic) 10 Mg Tab, 10 MG PO DAILY, TAB 10/14/24 Latanoprost (LATANOPROST) 0.005 % Nelly, 1 DROP EACHEYE QPM, #7.5 ML 3 Refills 10/14/24 Furosemide (Furosemide) 40 Mg Tab, 40 MG PO DAILY for 30 Days 10/14/24 Ysagmqjtmcs-Ybtofaqqwjjm-Epfke (Trelegy Ellipta 100-62.5-25 Mcg/INH) 1 Aer Aer, 1 AER IN, AER 10/14/24 Bicalutamide (Bicalutamide) 50 Mg Tab, 50 MG PO DAILY, TAB 10/14/24 Sitagliptin Phosphate (Januvia) 50 Mg Tab, 1 TAB PO DAILY 12/03/23 Levothyroxine Sodium (Levothyroxine Sodium) 150 Mcg Tab, 1 TAB PO DAILY 12/03/23 Current Medications Current Medications Medications (Trade) Dose Ordered Sig/Marie Route PRN Reason Start Time Stop Time Status Last Admin Azithromycin 250 ml @ 125 mls/hr DAILY IV 10/14/24 10:00 10/14/24 10:14 Pantoprazole Sodium (Protonix Tablet) 40 mg DAILY@0600 PO 10/14/24 06:00 10/14/24 05:03 Levothyroxine Sodium (Synthroid Tablet) 150 mcg QAM@0600 PO 10/14/24 06:00 10/14/24 05:02 Insulin Glargine (Lantus) 10 units BID@0700,2200 SC 10/14/24 22:00 10/14/24 22:27 Vital Signs Vital Signs Date Time Temp Pulse Resp B/P (MAP) Pulse Ox O2 Delivery O2 Flow Rate FiO2 10/14/24 22:22 73 20 98 10/14/24 22:12 Nasal Cannula 3.0 10/14/24 22:12 32 10/14/24 21:00 97.7 135/61 (85) 97.7 Physical Exam Gen.: Patient lying in bed in no apparent distress. On supplemental oxygen. Head: Normocephalic, atraumatic. Eyes: EOMI/PERRLA. Ears: Normal hearing. Normal anatomy. Neck/trachea: Trachea midline, supple. Nose: Normal external anatomy. Mouth: Moist mucous membranes. Chest: Decreased air entry bilaterally. No wheezing or rhonchi. Cardiovascular: Positive S1, positive S2. Regular rate and rhythm. Abdomen: Positive bowel sounds in all 4 quadrants. Soft, non-tender, non-disten ded. : Deferred. Rectal: Deferred. Skin: Warm, dry. Intact. Extremities: 2+ radial pulses bilaterally. No lower extremity edema. Neuro: Awake, alert, oriented x3. No gross motor or sensory deficits. Cranial nerves II through XII intact. Gait not assessed. Labs/Diagnostic Data Labs Test 10/14/24 22:13 10/14/24 05:39 10/13/24 14:00 10/13/24 12:45 Range/Units POC Glucose 191 H 70-106 mg/dl Sodium Level 144 136-145 mmol/L Potassium Level 4.1 3.5-5.1 mmol/L Chloride Level 108 H 98-107 mmol/L Carbon Dioxide Level 26 20-31 mmol/L Anion Gap 10 5-15 Blood Urea Nitrogen 40 H 9-23 mg/dL Creatinine 1.80 H 0.700-1.30 mg/dL Glomerular Filtration Rate Calc 36 >90 mL/min BUN/Creatinine Ratio 22.2 H 10.0-20.0 Serum Glucose 167 H 74-106 mg/dL Calcium Level 9.6 8.7-10.4 mg/dL Magnesium Level 2.5 1.6-2.6 mg/dL Thyroid Stimulating Hormone (TSH) 0.37 L 0.55-4.78 uIU/mL Troponin I High Sensitivity 11 </=54 ng/L Urine Color Light-yellow Yellow Urine Clarity Clear Clear Urine pH 5.0 5.0-9.0 Urine Specific [place] 1.009 1.001-1.035 Urine Protein Negative Negative Urine Ketones Negative Negative Urine Blood Negative Negative /uL Urine Nitrite Negative Negative Urine Bilirubin Negative Negative Urine Urobilinogen Normal Negative mg/dL Urine Leukocyte Esterase Negative Negative /uL Urine RBC None seen 0 - 3 /hpf Urine Microscopic WBC 1 0-3 /HPF Urine Squamous Epithelial Cells Few <5 /hpf Urine Bacteria Few H None Seen /hpf Urine Hyaline Casts Few 0 - 2 /lpf Urine Glucose Normal Normal mg/dL Test 10/13/24 10:40 10/13/24 10:32 Range/Units Influenza Type A Antigen Negative Negative Influenza Type B Antigen Negative Negative SARS-CoV-2 Antigen (Rapid) Negative NEGATIVE White Blood Count 9.5 4.4-10.8 10^3/uL Red Blood Count 4.42 L 4.5-5.90 10^6/uL Hemoglobin 13.6 13.5-17.5 g/dL Hematocrit 42.0 41.0-53.0 % Mean Corpuscular Volume 94.9 80.0-100.0 fL Mean Corpuscular Hemoglobin 30.8 28.0-32.0 pg Mean Corpuscular Hemoglobin Concent 32.5 32.0-36.0 g/dL Red Cell Distribution Width 15.9 H 11.8-14.3 % Platelet Count 254 140-450 10^3/uL Mean Platelet Volume 7.6 6.9-10.8 fL Neutrophils (%) (Auto) 65.6 37.0-80.0 % Lymphocytes (%) (Auto) 22.0 10.0-50.0 % Monocytes (%) (Auto) 11.0 0.0-12.0 % Eosinophils (%) (Auto) 0.9 0.0-7.0 % Basophils (%) (Auto) 0.5 0.0-2.0 % Neutrophils # (Auto) 6.2 1.6-8.6 10 ^3/uL Lymphocytes # (Auto) 2.1 0.4-5.4 10 ^3/uL Monocytes # (Auto) 1.0 0-1.3 10 ^3/uL Eosinophils # (Auto) 0.1 0-0.8 10 ^3/uL Basophils # (Auto) 0.1 0-0.2 10 ^3/uL Nucleated Red Blood Cells 0.0 % B-Type Natriuretic Peptide 112.28 0-100 pg/mL Assessment Impression: Acute on chronic hypoxic respiratory failure Dependence on supplemental oxygen Acute COPD exacerbation Hx of nicotine dependence (quit x20 yrs) Acute kidney injury CHF exacerbation Plan: Supplemental oxygen Titrate to keep O2 sats above 92%. Continue bronchodilators. IV steroids Accu-Cheks, ISS. Monitor renal function. Monitor electrolytes. Supplement as necessary. Monitor ins and outs. DVT prophylaxis. Prognosis: Poor given patient's multiple co-morbidities. Rest of plan per hospitalist and other consultants. Thank you, Dr. Hutchinson, for allowing me to participate in this patient's care. Further recommendations will depend on the patient's clinical course. Please do not hesitate to contact me if you have any questions or concerns. This medical document was created using an electronic medical record system with Dragon computerized dictation system. Although these documentations are being carefully reviewed, there may still be some phonetic and typographical changes. The errors are purely typographical, due to imperfection on the software program, and do not reflect any compromise in the patient's medical care. Plan discussed with: Patient, Other (RN/Dr. Hutchinson) RAJANI LEES MD Oct 14, 2024 23:22
[2024-10-15] VITALS (18 sets, daily range): BP systolic 121–138; BP diastolic 58–83; PULSE 66–97; RESP 16–28; TEMP 97.7–98.3; O2SAT 90–100
--- NOTE | 2024-10-15 11:33 | DVHPN2 ---
Subjective Doing better 2 L nasal cannula now Changes from previous H/P or p: Changes Respiratory: Cough, Shortness of breath, Wheezing Objective Vitals Vital Signs Date Time Temp Pulse Resp B/P (MAP) Pulse Ox O2 Delivery O2 Flow Rate FiO2 10/15/24 10:00 96 Nasal Cannula* 3 32 10/15/24 08:46 97.8 66 24 137/66 (89) 97.8 Intake/Output Intake and Output 10/15/24 07:00 Intake Total 1200 ml Balance 1200 ml Intake Oral 950 ml IV Total 250 ml # Voids 5 General Appearance: Alert, Oriented X3, mild distress Lungs: Other (Diffuse wheezing) Cardiovascular: Regular rate, Normal S1 Abdomen: Normal bowel sounds, Soft, No tenderness Medications Current Medications Medications Dose Ordered Sig/Marie Route Start Time Stop Time Status Last Admin Dose Admin Nitroglycerin 0.4 mg Q5MINP PRN SL 10/13/24 13:45 Morphine Sulfate 2 mg Q30M PRN IV 10/13/24 13:45 Methylprednisolone Sodium Succinate 40 mg BID IV 10/13/24 22:00 10/14/24 22:04 40 MG Azithromycin 250 ml @ 125 mls/hr DAILY IV 10/14/24 10:00 10/15/24 10:39 125 MLS/HR Pantoprazole Sodium 40 mg DAILY@0600 PO 10/14/24 06:00 10/15/24 06:07 40 MG Ondansetron HCl 4 mg Q4HPRN PRN IV 10/13/24 13:45 Acetaminophen 650 mg Q6HP PRN PO 10/13/24 13:45 Apixaban 2.5 mg BID PO 10/13/24 22:00 10/15/24 10:37 2.5 MG Atorvastatin Calcium 80 mg HS PO 10/13/24 22:00 10/14/24 22:05 80 MG Levothyroxine Sodium 150 mcg QAM@0600 PO 10/14/24 06:00 10/15/24 06:07 150 MCG Diagnostic Test (Pha) 1 strip ACHS 10/13/24 17:00 10/15/24 06:09 1 STRIP Insulin Human Regular HS SC 10/13/24 22:00 10/14/24 22:27 3 UNITS Insulin Human Regular AC SC 10/13/24 17:00 10/15/24 06:33 6 UNITS Dextrose 50 ml UD PRN IV 10/13/24 14:00 Insulin Glargine 15 units BID@0700,2200 SC 10/15/24 22:00 Albuterol 2.5 mg Q4HR NEB 10/15/24 14:00 Ipratropium [place] 0.5 mg Q4HR NEB 10/15/24 14:00 Acetylcysteine 200 mg Q8HR NEB 10/15/24 14:00 10/18/24 13:59 Laboratory Results Laboratory Tests 10/13/24 10:32 10/14/24 05:39 Urinalysis Test 10/13/24 12:45 Urine Color Light-yellow (Yellow) Urine Clarity Clear (Clear) Urine pH 5.0 (5.0-9.0) Urine Specific [place] 1.009 (1.001-1.035) Urine Protein Negative (Negative) Urine Ketones Negative (Negative) Urine Blood Negative /uL (Negative) Urine Nitrite Negative (Negative) Urine Bilirubin Negative (Negative) Urine Urobilinogen Normal mg/dL (Negative) Urine Leukocyte Esterase Negative /uL (Negative) Urine RBC None seen /hpf (0 - 3) Urine Microscopic WBC 1 /HPF (0-3) Urine Squamous Epithelial Cells Few /hpf (<5) Urine Bacteria Few /hpf (None Seen) H Urine Hyaline Casts Few /lpf (0 - 2) Urine Glucose Normal mg/dL (Normal) Assessment/Plan Assessment/Plan Acute hypoxic respiratory failure COPD exacerbation Chronic respiratory failure on home O2 Diastolic heart failure Type 2 diabetes Hypertension Hypothyroidism Chronic kidney disease Hypernatremia Paroxysmal atrial fibrillation Plan Admit to telemetry Oxygen Solu-Medrol IV IV Zithromax Med neb treatments as needed Resume the home medications Monitor closely Full code Discussed with the patient and his at the bedside 10/14/2024: Continue oxygen as needed Med nebs as needed IV Zithromax IV steroids Pulmonary consultation Add Lantus for better blood glucose control 10/15/2024: Continue the current management Oxygen as needed IV antibiotics IV steroids Incentive spirometry Monitor closely Plan discussed with: Patient My Orders Orders - JAMES JAMES MD Procedure Category Date Status Time *Consult CONS 10/14/24 Transmitted / 12:57 Insulin Lantus PHA 10/15/24 In Process (Glargine) (Lantus) 22:00 (Nf) Bicalutamide PHA 10/16/24 Transmitted 10:00 Date of Service: Oct 15, 2024 Billing Provider: JAMES JAMES MD Common Visit Codes: NOT BILLABLE JAMES JAMES MD Oct 15, 2024 11:33
[2024-10-15] MEDS: BICALUTAMIDE 50 MG PO ONE (12:49)
[2024-10-15] MEDS: predniSONE 20 MG TAB PO ONE (12:49)
[2024-10-15] MEDS: ACETYLCYSTEINE 20%(200MG/ML) SOL 4ML NEB SCH (13:48)
[2024-10-15] MEDS: IPRATROPIUM BROM 0.5 MG/2.5ML INH SOL NEB SCH (13:48)
[2024-10-15] MEDS: ALBUTEROL SULF 2.5 MG/0.5ML(0.5%) NEB SOLN NEB SCH (13:48)
[2024-10-15] MEDS: INSULIN LANTUS (GLARGINE) 1 /0.01ml (100units/ml) SC SCH (22:11)
--- NOTE | 2024-10-15 23:28 | DVHPN2 ---
Progress Note - Dictate Date Seen: Oct 15, 2024 Medical Necessity Reason Pt with a Central, PICC or Fol: No Subjective Patient seen and examined at bedside. Remains on supplemental oxygen Overnight events reviewed. vital signs Vital Sign Date Time Temp Pulse Resp B/P (MAP) Pulse Ox O2 Delivery O2 Flow Rate FiO2 10/15/24 22:07 92 Nasal Cannula* 2 28 10/15/24 22:07 80 20 10/15/24 20:17 97.8 138/58 (84) 97.8 Total Intake and Output 10/14/24 10/14/24 10/15/24 15:00 23:00 07:00 Intake Total 250 ml 500 ml 450 ml Balance 250 ml 500 ml 450 ml medications Current Medications Medications Dose Ordered Sig/Marie Route Start Time Stop Time Status Last Admin Dose Admin Nitroglycerin 0.4 mg Q5MINP PRN SL 10/13/24 13:45 Morphine Sulfate 2 mg Q30M PRN IV 10/13/24 13:45 Azithromycin 250 ml @ 125 mls/hr DAILY IV 10/14/24 10:00 10/15/24 10:39 125 MLS/HR Pantoprazole Sodium 40 mg DAILY@0600 PO 10/14/24 06:00 10/15/24 06:07 40 MG Ondansetron HCl 4 mg Q4HPRN PRN IV 10/13/24 13:45 Acetaminophen 650 mg Q6HP PRN PO 10/13/24 13:45 Apixaban 2.5 mg BID PO 10/13/24 22:00 10/15/24 22:01 2.5 MG Atorvastatin Calcium 80 mg HS PO 10/13/24 22:00 10/15/24 22:01 80 MG Levothyroxine Sodium 150 mcg QAM@0600 PO 10/14/24 06:00 10/15/24 06:07 150 MCG Diagnostic Test (Pha) 1 strip ACHS 10/13/24 17:00 10/15/24 22:01 1 STRIP Insulin Human Regular HS SC 10/13/24 22:00 10/15/24 22:10 4 UNITS Insulin Human Regular AC SC 10/13/24 17:00 10/15/24 17:00 2 UNITS Dextrose 50 ml UD PRN IV 10/13/24 14:00 Insulin Glargine 15 units BID@0700,2200 SC 10/15/24 22:00 10/15/24 22:11 15 UNITS Albuterol 2.5 mg Q4HR NEB 10/15/24 14:00 10/15/24 22:07 2.5 MG Ipratropium [place] 0.5 mg Q4HR NEB 10/15/24 14:00 10/15/24 22:07 0.5 MG Acetylcysteine 200 mg Q8HR NEB 10/15/24 14:00 10/18/24 13:59 10/15/24 18:21 200 MG Patient Own Medication 50 mg DAILY PO 10/16/24 10:00 Prednisone 40 mg DAILY PO 10/16/24 10:00 objective Gen.: Patient lying in bed in no apparent distress. On supplemental oxygen. Head: Normocephalic, atraumatic. Eyes: EOMI/PERRLA. Ears: Normal hearing. Normal anatomy. Neck/trachea: Trachea midline, supple. Nose: Normal external anatomy. Mouth: Moist mucous membranes. Chest: Decreased air entry bilaterally. No wheezing or rhonchi. Cardiovascular: Positive S1, positive S2. Regular rate and rhythm. Abdomen: Positive bowel sounds in all 4 quadrants. Soft, non-tender, non- distended. : Deferred. Rectal: Deferred. Skin: Warm, dry. Intact. Extremities: 2+ radial pulses bilaterally. No lower extremity edema. Neuro: Awake, alert, oriented x3. No gross motor or sensory deficits. Cranial nerves II through XII intact. Gait not assessed. laboratory and microbiology Laboratory Tests 10/14/24 05:39 10/13/24 10:32 Test 10/14/24 05:39 Range/Units Serum Glucose 167 H 74-106 mg/dL Assessment/Plan Impression: Acute on chronic hypoxic respiratory failure Dependence on supplemental oxygen Acute COPD exacerbation Hx of nicotine dependence (quit x20 yrs) Acute kidney injury CHF exacerbation Events: Remains on supplemental oxygen, 3 LPM NC Taper O2 as tolerated Continue bronchodilators, made scheduled. Start Mucomyst. Start CPT. Continue steroids Continue antibiotics Labs and imaging reviewed. Rest of plan as noted below Plan: Supplemental oxygen Titrate to keep O2 sats above 92%. Continue bronchodilators. Continue steroids Accu-Cheks, ISS. Monitor renal function. Monitor electrolytes. Supplement as necessary. Monitor ins and outs. DVT prophylaxis. Prognosis: Guarded given patient's multiple co-morbidities. Rest of plan per hospitalist and other consultants. Thank you, Dr. Hutchinson, for allowing me to participate in this patient's care. Further recommendations will depend on the patient's clinical course. Please do not hesitate to contact me if you have any questions or concerns. This medical document was created using an electronic medical record system with [employer] dictation system. Although these documentations are being carefully reviewed, there may still be some phonetic and typographical changes. The errors are purely typographical, due to imperfection on the software program, and do not reflect any compromise in the patient's medical care. Plan discussed with: Patient, Other (NISSA Villarreal) RAJANI LEES MD Oct 15, 2024 23:28
[2024-10-16] VITALS (23 sets, daily range): BP systolic 102–183; BP diastolic 50–84; PULSE 65–82; RESP 16–19; TEMP 97.5–98.5; O2SAT 92–99
[2024-10-16] MEDS: predniSONE 20 MG TAB PO SCH (10:58)
[2024-10-16] MEDS: BICALUTAMIDE 50 MG PO SCH (11:00)
--- NOTE | 2024-10-16 11:05 | DVHPN2 ---
Subjective Still congested on 2 liters O2 No peripheral edema Changes from previous H/P or p: Changes Respiratory: Cough, Shortness of breath, Wheezing Objective Vitals Vital Signs Date Time Temp Pulse Resp B/P (MAP) Pulse Ox O2 Delivery O2 Flow Rate FiO2 10/16/24 09:48 76 18 99 10/16/24 09:42 Nasal Cannula 2.0 10/16/24 09:42 28 10/16/24 09:00 97.7 140/69 (92) 97.7 Intake/Output Intake and Output 10/16/24 07:00 Intake Total 950 ml Balance 950 ml Intake Oral 700 ml IV Total 250 ml # Voids 2 General Appearance: Alert, Oriented X3, mild distress Lungs: Other (Diffuse wheezing) Cardiovascular: Regular rate, Normal S1 Abdomen: Normal bowel sounds, Soft, No tenderness Medications Current Medications Medications Dose Ordered Sig/Marie Route Start Time Stop Time Status Last Admin Dose Admin Nitroglycerin 0.4 mg Q5MINP PRN SL 10/13/24 13:45 Morphine Sulfate 2 mg Q30M PRN IV 10/13/24 13:45 Azithromycin 250 ml @ 125 mls/hr DAILY IV 10/14/24 10:00 10/15/24 10:39 125 MLS/HR Pantoprazole Sodium 40 mg DAILY@0600 PO 10/14/24 06:00 10/16/24 06:18 40 MG Ondansetron HCl 4 mg Q4HPRN PRN IV 10/13/24 13:45 Acetaminophen 650 mg Q6HP PRN PO 10/13/24 13:45 Apixaban 2.5 mg BID PO 10/13/24 22:00 10/15/24 22:01 2.5 MG Atorvastatin Calcium 80 mg HS PO 10/13/24 22:00 10/15/24 22:01 80 MG Levothyroxine Sodium 150 mcg QAM@0600 PO 10/14/24 06:00 10/16/24 06:19 150 MCG Diagnostic Test (Pha) 1 strip ACHS 10/13/24 17:00 10/16/24 06:19 1 STRIP Insulin Human Regular HS SC 10/13/24 22:00 10/15/24 22:10 4 UNITS Insulin Human Regular AC SC 10/13/24 17:00 10/16/24 06:27 3 UNITS Dextrose 50 ml UD PRN IV 10/13/24 14:00 Insulin Glargine 15 units BID@0700,2200 SC 10/15/24 22:00 10/16/24 06:28 15 UNITS Albuterol 2.5 mg Q4HR NEB 10/15/24 14:00 10/16/24 09:42 2.5 MG Ipratropium [place] 0.5 mg Q4HR NEB 10/15/24 14:00 10/16/24 09:42 0.5 MG Acetylcysteine 200 mg Q8HR NEB 10/15/24 14:00 10/18/24 13:59 10/16/24 05:52 200 MG Patient Own Medication 50 mg DAILY PO 10/16/24 10:00 Prednisone 40 mg DAILY PO 10/16/24 10:00 Furosemide 40 mg DAILY IV 10/17/24 10:00 UNV Laboratory Results Laboratory Tests 10/13/24 10:32 10/14/24 05:39 Urinalysis Test 10/13/24 12:45 Urine Color Light-yellow (Yellow) Urine Clarity Clear (Clear) Urine pH 5.0 (5.0-9.0) Urine Specific [place] 1.009 (1.001-1.035) Urine Protein Negative (Negative) Urine Ketones Negative (Negative) Urine Blood Negative /uL (Negative) Urine Nitrite Negative (Negative) Urine Bilirubin Negative (Negative) Urine Urobilinogen Normal mg/dL (Negative) Urine Leukocyte Esterase Negative /uL (Negative) Urine RBC None seen /hpf (0 - 3) Urine Microscopic WBC 1 /HPF (0-3) Urine Squamous Epithelial Cells Few /hpf (<5) Urine Bacteria Few /hpf (None Seen) H Urine Hyaline Casts Few /lpf (0 - 2) Urine Glucose Normal mg/dL (Normal) Assessment/Plan Assessment/Plan Acute hypoxic respiratory failure COPD exacerbation Chronic respiratory failure on home O2 Diastolic heart failure Type 2 diabetes Hypertension Hypothyroidism Chronic kidney disease Hypernatremia Paroxysmal atrial fibrillation Plan Admit to telemetry Oxygen Solu-Medrol IV IV Zithromax Med neb treatments as needed Resume the home medications Monitor closely Full code Discussed with the patient and his at the bedside 10/14/2024: Continue oxygen as needed Med nebs as needed IV Zithromax IV steroids Pulmonary consultation Add Lantus for better blood glucose control 10/15/2024: Continue the current management Oxygen as needed IV antibiotics IV steroids Incentive spirometry Monitor closely 10/16/24: Resume Lasix, 40 mg IV qd Nephrology consult Monitor closely Zithromax Afib: Eliquis COPD: Prednisone Physical therapy Plan discussed with: Patient, Spouse My Orders Orders - JAMES JAMES MD Procedure Category Date Status Time (Nf) Bicalutamide PHA 10/16/24 In Process 10:00 Prednisone Tablet PHA 10/16/24 In Process 10:00 Furosemide Injection PHA 10/17/24 Logged (Lasix Injection) 10:00 Furosemide Injection PHA 10/16/24 Logged (Lasix Injection) 11:00 *[facility] CONS 10/16/24 Transmitted -[place] 10:52 Basic Metabolic Panel LAB 10/17/24 Verified 04:00 Complete Blood Count LAB 10/17/24 Verified 04:00 Magnesium LAB 10/17/24 Verified 04:00 Pt Request For Service PT 10/16/24 Logged 11:00 Date of Service: Oct 16, 2024 Billing Provider: JAMES JAMES MD Common Visit Codes: NOT BILLABLE JAMES JAMES MD Oct 16, 2024 11:05
[2024-10-16] MEDS: TRANEXAMIC ACID 0 ML ONE (11:18)
[2024-10-16] MEDS: FUROSEMIDE 40 MG/4 ML VIAL IV ONE (13:45)
--- NOTE | 2024-10-16 16:11 | DVHPN2 ---
Progress Note - Dictate Medical Necessity Reason Pt with a Central, PICC or Fol: No vital signs Vital Sign Date Time Temp Pulse Resp B/P (MAP) Pulse Ox O2 Delivery O2 Flow Rate FiO2 10/16/24 15:25 71 136/64 (88) 10/16/24 14:11 18 99 10/16/24 14:05 2.0 28 10/16/24 14:03 Nasal Cannula* 10/16/24 12:38 97.7 97.7 Total Intake and Output 10/15/24 10/15/24 10/16/24 15:00 23:00 07:00 Intake Total 250 ml 450 ml 250 ml Balance 250 ml 450 ml 250 ml medications Current Medications Medications Dose Ordered Sig/Mraie Route Start Time Stop Time Status Last Admin Dose Admin Nitroglycerin 0.4 mg Q5MINP PRN SL 10/13/24 13:45 Morphine Sulfate 2 mg Q30M PRN IV 10/13/24 13:45 Azithromycin 250 ml @ 125 mls/hr DAILY IV 10/14/24 10:00 10/16/24 10:59 125 MLS/HR Pantoprazole Sodium 40 mg DAILY@0600 PO 10/14/24 06:00 10/16/24 06:18 40 MG Ondansetron HCl 4 mg Q4HPRN PRN IV 10/13/24 13:45 Acetaminophen 650 mg Q6HP PRN PO 10/13/24 13:45 Apixaban 2.5 mg BID PO 10/13/24 22:00 10/16/24 10:57 2.5 MG Atorvastatin Calcium 80 mg HS PO 10/13/24 22:00 10/15/24 22:01 80 MG Levothyroxine Sodium 150 mcg QAM@0600 PO 10/14/24 06:00 10/16/24 06:19 150 MCG Diagnostic Test (Pha) 1 strip ACHS 10/13/24 17:00 10/16/24 11:10 1 STRIP Insulin Human Regular HS SC 10/13/24 22:00 10/15/24 22:10 4 UNITS Insulin Human Regular AC SC 10/13/24 17:00 10/16/24 11:34 3 UNITS Dextrose 50 ml UD PRN IV 10/13/24 14:00 Insulin Glargine 15 units BID@0700,2200 SC 10/15/24 22:00 10/16/24 06:28 15 UNITS Albuterol 2.5 mg Q4HR NEB 10/15/24 14:00 10/16/24 14:03 2.5 MG Ipratropium [place] 0.5 mg Q4HR NEB 10/15/24 14:00 10/16/24 14:03 0.5 MG Acetylcysteine 200 mg Q8HR NEB 10/15/24 14:00 10/18/24 13:59 10/16/24 14:03 200 MG Patient Own Medication 50 mg DAILY PO 10/16/24 10:00 10/16/24 11:00 50 MG Prednisone 40 mg DAILY PO 10/16/24 10:00 10/16/24 10:58 40 MG Furosemide 40 mg DAILY IV 10/17/24 10:00 laboratory and microbiology Laboratory Tests 10/14/24 05:39 10/13/24 10:32 Test 10/14/24 05:39 Range/Units Serum Glucose 167 H 74-106 mg/dL LEANNE MIRELES MD Oct 16, 2024 16:11
--- NOTE | 2024-10-16 20:16 | DVHPN2 ---
Progress Note - Dictate Date Seen: Oct 16, 2024 Medical Necessity Reason Pt with a Central, PICC or Fol: No Subjective Patient seen and examined Overnight events reviewed vital signs Vital Sign Date Time Temp Pulse Resp B/P (MAP) Pulse Ox O2 Delivery O2 Flow Rate FiO2 10/16/24 18:31 76 18 94 10/16/24 18:23 Nasal Cannula* 3 32 10/16/24 17:00 98.5 143/68 (93) 98.5 Total Intake and Output 10/15/24 10/15/24 10/16/24 15:00 23:00 07:00 Intake Total 250 ml 450 ml 250 ml Balance 250 ml 450 ml 250 ml medications Current Medications Medications Dose Ordered Sig/Marie Route Start Time Stop Time Status Last Admin Dose Admin Nitroglycerin 0.4 mg Q5MINP PRN SL 10/13/24 13:45 Morphine Sulfate 2 mg Q30M PRN IV 10/13/24 13:45 Azithromycin 250 ml @ 125 mls/hr DAILY IV 10/14/24 10:00 10/16/24 10:59 125 MLS/HR Pantoprazole Sodium 40 mg DAILY@0600 PO 10/14/24 06:00 10/16/24 06:18 40 MG Ondansetron HCl 4 mg Q4HPRN PRN IV 10/13/24 13:45 Acetaminophen 650 mg Q6HP PRN PO 10/13/24 13:45 Apixaban 2.5 mg BID PO 10/13/24 22:00 10/16/24 10:57 2.5 MG Atorvastatin Calcium 80 mg HS PO 10/13/24 22:00 10/15/24 22:01 80 MG Levothyroxine Sodium 150 mcg QAM@0600 PO 10/14/24 06:00 10/16/24 06:19 150 MCG Diagnostic Test (Pha) 1 strip ACHS 10/13/24 17:00 10/16/24 17:13 1 STRIP Insulin Human Regular HS SC 10/13/24 22:00 10/15/24 22:10 4 UNITS Insulin Human Regular AC SC 10/13/24 17:00 10/16/24 17:14 3 UNITS Dextrose 50 ml UD PRN IV 10/13/24 14:00 Insulin Glargine 15 units BID@0700,2200 SC 10/15/24 22:00 10/16/24 06:28 15 UNITS Albuterol 2.5 mg Q4HR NEB 10/15/24 14:00 10/16/24 18:23 2.5 MG Ipratropium [place] 0.5 mg Q4HR NEB 10/15/24 14:00 10/16/24 18:23 0.5 MG Acetylcysteine 200 mg Q8HR NEB 10/15/24 14:00 10/18/24 13:59 10/16/24 18:23 200 MG Patient Own Medication 50 mg DAILY PO 10/16/24 10:00 10/16/24 11:00 50 MG Prednisone 40 mg DAILY PO 10/16/24 10:00 10/16/24 10:58 40 MG Furosemide 40 mg DAILY IV 10/17/24 10:00 laboratory and microbiology Laboratory Tests 10/14/24 05:39 10/13/24 10:32 Test 10/14/24 05:39 Range/Units Serum Glucose 167 H 74-106 mg/dL Assessment/Plan Impression Acute hypoxemic respiratory failure Acute COPD exacerbation Former smoker CHF Patient seen and examined Events Low oxygen requirements On room air No distress Labs and imaging reviewed Management Supplemental oxygen as needed Titrate to maintain sats 90% or above Incentive spirometry Continue antibiotics F/u cultures Bronchodilators Steroids Monitor renal function Monitor electrolytes Supplement as needed DVT prophylaxis Dietary Evaluation Review Comments: 1) Encourage optimal PO intake 2) Collect HbA1c 3) Continue to monitor I&O, labs, and skin integrity 4) F/u with pulmonology, cardiology, and nephrology Expected Outcomes/Goals: 1) appetite and labs to improve 2) f/u in 5 days Plan discussed with: Patient LEANNE MIRELES MD Oct 16, 2024 20:16
[2024-10-17] VITALS (16 sets, daily range): BP systolic 112–152; BP diastolic 57–73; PULSE 62–79; RESP 16–19; TEMP 97.4–98.3; O2SAT 88–99
[2024-10-17 07:15] LABS: Basophils # (auto) 0 10 ^3/uL (0-0.2); Basophils % (auto) 0.1 % (0.0-2.0); Eosinophils # (auto) 0 10 ^3/uL (0-0.8); Hematocrit 37.2 % (41.0-53.0); Hemoglobin 12.9 g/dL (13.5-17.5); Lymphocytes # (auto) 3.4 10 ^3/uL (0.4-5.4); Lymphocytes % (auto) 24.7 % (10.0-50.0); Mean Corpuscular Hemoglobin 31.8 pg (28.0-32.0); Mean Corpuscular Hgb Conc. 34.6 g/dL (32.0-36.0); Mean Corpuscular Volume 91.9 fL (80.0-100.0); Monocytes # (auto) 1.1 10 ^3/uL (0-1.3); Monocytes % (auto) 7.7 % (0.0-12.0); Neutrophils # (auto) 9.4 10 ^3/uL (1.6-8.6); Neutrophils % (auto) 67.5 % (37.0-80.0); Platelet Count (auto) 245 10^3/uL (140-450); Red Blood Cells 4.05 10^6/uL (4.5-5.90); Red Cell Distribution Width 15.1 % (11.8-14.3); White Blood Cell 13.9 10^3/uL (4.4-10.8)
[2024-10-17 07:17] LABS: Anion Gap 5 (5-15); Chloride 104 mmol/L (98-107); Potassium 4.1 mmol/L (3.5-5.1); Sodium 142 mmol/L (136-145)
[2024-10-17 07:18] LABS: Calcium 9.6 mg/dL (8.7-10.4); Carbon Dioxide 33 mmol/L (20-31)
[2024-10-17 07:23] LABS: Glucose 115 mg/dL (74-106)
[2024-10-17 07:25] LABS: BUN/Creatinine Ratio 24.4 (10.0-20.0); Blood Urea Nitrogen 41 mg/dL (9-23); Magnesium 2.7 mg/dL (1.6-2.6); Phosphorus 3.4 mg/dL (2.4-5.1)
[2024-10-17] MEDS: FUROSEMIDE 40 MG/4 ML VIAL IV SCH (10:34)
--- NOTE | 2024-10-17 11:04 | DVHINCON2 ---
Date of service: Oct 17, [address] Hutchinson Reason for Consultation Acute kidney injury History of Present Illness Mr. Mendiola is a 84-year-old male with known history of underlying stage IIIB CKD being followed by Dr. Neal mathis in outpatient CKD Clinic who presented for further evaluation and management of worsening dyspnea and hypoxia. Current consultation requested for ongoing management of kidney function is inpatient. He was seen in his room, awake alert conversant and in no acute distress, patient's is at the bedside. Mr. Mendiola states that his shortness of breath has improved since admission. Past Medical History CKD stage IIIB Hypertension Dyslipidemia Heart failure Atrial fibrillation Diabetes COPD Allergies: Coded Allergies: NO KNOWN ALLERGIES (Unverified , 11/30/23) Home Meds Active Scripts Methylprednisolone (Medrol Dosepak) 4 Mg Arya, 4 MG PO UD, #21 TAB UAD Prov:JAMES HUTCHNISON MD 12/05/23 Amlodipine Besylate (NORVASC TABLET) 5 Mg Tb, 5 MG PO DAILY for 30 Days, #30 TAB Prov:JAMES HUTCHINSON MD 12/05/23 Carvedilol (COREG) 3.125 Mg Tab, 3.125 MG PO Q12HR for 30 Days, #60 TAB Prov:JAMES HUTCHINSON MD 12/05/23 Atorvastatin Calcium (ATORVASTATIN CALCIUM) 20 Mg Tab, 80 MG PO HS for 30 Days, #120 TAB Prov:JAMES HUTCHINSON MD 12/05/23 Apixaban Base (ELIQUIS) 2.5 Mg Tab, 2.5 MG PO BID for 30 Days, #60 TAB Prov:JAMES HUTCHINSON MD 12/05/23 Reported Medications Nebivolol Hcl (Bystolic) 10 Mg Tab, 10 MG PO DAILY, TAB 10/14/24 Latanoprost (LATANOPROST) 0.005 % Nelly, 1 DROP EACHEYE QPM, #7.5 ML 3 Refills 10/14/24 Furosemide (Furosemide) 40 Mg Tab, 40 MG PO DAILY for 30 Days 10/14/24 Njdnagaqdaq-Klnzngdgriet-Rcbbx (Trelegy Ellipta 100-62.5-25 Mcg/INH) 1 Aer Aer, 1 AER IN, AER 10/14/24 Bicalutamide (Bicalutamide) 50 Mg Tab, 50 MG PO DAILY, TAB 10/14/24 Sitagliptin Phosphate (Januvia) 50 Mg Tab, 1 TAB PO DAILY 12/03/23 Levothyroxine Sodium (Levothyroxine Sodium) 150 Mcg Tab, 1 TAB PO DAILY 12/03/23 Current Medications Current Medications Medications (Trade) Dose Ordered Sig/Marie Route PRN Reason Start Time Stop Time Status Last Admin Furosemide (Lasix Injection) 40 mg DAILY IV 10/17/24 10:00 10/17/24 10:34 Family History: Patient reports no known family medical history. Review of Systems Denies gross hematuria, dysuria, tea or Coca-Cola colored urine Denies excessive use of recent NSAIDs, foamy urine, recent IV contrast studies Denies recent chest pain, Denies fever, chills, nausea, vomiting, diarrhea Denies unintentional weight loss, night sweats Denies focal weakness, numbness + shortness of breath worse than baseline H&P Exam Vital Signs/I&O Vital Sign Date Time Temp Pulse Resp B/P (MAP) Pulse Ox O2 Delivery O2 Flow Rate FiO2 10/17/24 10:34 137/60 10/17/24 09:57 72 16 94 10/17/24 09:51 Nasal Cannula* 3 32 10/17/24 09:00 97.9 97.9 Intake and Output 10/16/24 10/17/24 19:00 07:00 Intake Total 970 ml 800 ml Output Total 800 ml Balance 170 ml 800 ml Intake Oral 720 ml 800 ml IV Total 250 ml Output Urine Total 800 ml # Voids 2 3 Physical Exam Gen: nad, elderly heent: nc/at, mmm lungs: Coarse bilaterally cvs: no rub abd: soft, bowel sounds audible ext: + edema skin: no rash neuro: alert and oriented Labs/Diagnostic Data Labs/Diagnostic Data Laboratory Tests Test 10/17/24 05:18 10/16/24 20:53 10/16/24 11:09 10/16/24 05:59 Range/Units White Blood Count 13.9 #H 4.4-10.8 10^3/uL Red Blood Count 4.05 L 4.5-5.90 10^6/uL Hemoglobin 12.9 L 13.5-17.5 g/dL Hematocrit 37.2 #L 41.0-53.0 % Mean Corpuscular Volume 91.9 80.0-100.0 fL Mean Corpuscular Hemoglobin 31.8 28.0-32.0 pg Mean Corpuscular Hemoglobin Concent 34.6 32.0-36.0 g/dL Red Cell Distribution Width 15.1 H 11.8-14.3 % Platelet Count 245 140-450 10^3/uL Mean Platelet Volume 8.1 6.9-10.8 fL Neutrophils (%) (Auto) 67.5 37.0-80.0 % Lymphocytes (%) (Auto) 24.7 10.0-50.0 % Monocytes (%) (Auto) 7.7 0.0-12.0 % Eosinophils (%) (Auto) 0.0 0.0-7.0 % Basophils (%) (Auto) 0.1 0.0-2.0 % Neutrophils # (Auto) 9.4 H 1.6-8.6 10 ^3/uL Lymphocytes # (Auto) 3.4 0.4-5.4 10 ^3/uL Monocytes # (Auto) 1.1 0-1.3 10 ^3/uL Eosinophils # (Auto) 0 0-0.8 10 ^3/uL Basophils # (Auto) 0 0-0.2 10 ^3/uL Nucleated Red Blood Cells 0.0 % Sodium Level 142 136-145 mmol/L Potassium Level 4.1 3.5-5.1 mmol/L Chloride Level 104 98-107 mmol/L Carbon Dioxide Level 33 H 20-31 mmol/L Anion Gap 5 5-15 Blood Urea Nitrogen 41 H 9-23 mg/dL Creatinine 1.68 H 0.700-1.30 mg/dL Glomerular Filtration Rate Calc 39 >90 mL/min BUN/Creatinine Ratio 24.4 H 10.0-20.0 Serum Glucose 115 H 74-106 mg/dL Calcium Level 9.6 8.7-10.4 mg/dL Phosphorus Level 3.4 2.4-5.1 mg/dL Magnesium Level 2.7 H 1.6-2.6 mg/dL POC Glucose 244 H 189 H 169 H 70-106 mg/dl Test 10/15/24 21:38 10/15/24 17:34 10/15/24 11:57 10/15/24 06:01 Range/Units POC Glucose 207 H 145 H 241 H 213 H 70-106 mg/dl Test 10/14/24 22:13 3/13/25 14:21 10/14/24 11:53 10/14/24 05:39 Range/Units POC Glucose 191 H 284 H 281 H 70-106 mg/dl Sodium Level 144 136-145 mmol/L Potassium Level 4.1 3.5-5.1 mmol/L Chloride Level 108 H 98-107 mmol/L Carbon Dioxide Level 26 20-31 mmol/L Anion Gap 10 5-15 Blood Urea Nitrogen 40 H 9-23 mg/dL Creatinine 1.80 H 0.700-1.30 mg/dL Glomerular Filtration Rate Calc 36 >90 mL/min BUN/Creatinine Ratio 22.2 H 10.0-20.0 Serum Glucose 167 H 74-106 mg/dL Calcium Level 9.6 8.7-10.4 mg/dL Magnesium Level 2.5 1.6-2.6 mg/dL Thyroid Stimulating Hormone (TSH) 0.37 L 0.55-4.78 uIU/mL Test 10/13/24 21:38 10/13/24 14:00 10/13/24 12:45 10/13/24 11:57 Range/Units POC Glucose 343 H 70-106 mg/dl Troponin I High Sensitivity 11 10 </=54 ng/L Urine Color Light-yellow Yellow Urine Clarity Clear Clear Urine pH 5.0 5.0-9.0 Urine Specific [place] 1.009 1.001-1.035 Urine Protein Negative Negative Urine Ketones Negative Negative Urine Blood Negative Negative /uL Urine Nitrite Negative Negative Urine Bilirubin Negative Negative Urine Urobilinogen Normal Negative mg/dL Urine Leukocyte Esterase Negative Negative /uL Urine RBC None seen 0 - 3 /hpf Urine Microscopic WBC 1 0-3 /HPF Urine Squamous Epithelial Cells Few <5 /hpf Urine Bacteria Few H None Seen /hpf Urine Hyaline Casts Few 0 - 2 /lpf Urine Glucose Normal Normal mg/dL Test 10/13/24 10:40 10/13/24 10:32 Range/Units Influenza Type A Antigen Negative Negative Influenza Type B Antigen Negative Negative SARS-CoV-2 Antigen (Rapid) Negative NEGATIVE White Blood Count 9.5 4.4-10.8 10^3/uL Red Blood Count 4.42 L 4.5-5.90 10^6/uL Hemoglobin 13.6 13.5-17.5 g/dL Hematocrit 42.0 41.0-53.0 % Mean Corpuscular Volume 94.9 80.0-100.0 fL Mean Corpuscular Hemoglobin 30.8 28.0-32.0 pg Mean Corpuscular Hemoglobin Concent 32.5 32.0-36.0 g/dL Red Cell Distribution Width 15.9 H 11.8-14.3 % Platelet Count 254 140-450 10^3/uL Mean Platelet Volume 7.6 6.9-10.8 fL Neutrophils (%) (Auto) 65.6 37.0-80.0 % Lymphocytes (%) (Auto) 22.0 10.0-50.0 % Monocytes (%) (Auto) 11.0 0.0-12.0 % Eosinophils (%) (Auto) 0.9 0.0-7.0 % Basophils (%) (Auto) 0.5 0.0-2.0 % Neutrophils # (Auto) 6.2 1.6-8.6 10 ^3/uL Lymphocytes # (Auto) 2.1 0.4-5.4 10 ^3/uL Monocytes # (Auto) 1.0 0-1.3 10 ^3/uL Eosinophils # (Auto) 0.1 0-0.8 10 ^3/uL Basophils # (Auto) 0.1 0-0.2 10 ^3/uL Nucleated Red Blood Cells 0.0 % Sodium Level 147 H 136-145 mmol/L Potassium Level 4.0 3.5-5.1 mmol/L Chloride Level 109 H 98-107 mmol/L Carbon Dioxide Level 30 20-31 mmol/L Anion Gap 8 5-15 Blood Urea Nitrogen 33 H 9-23 mg/dL Creatinine 1.68 H 0.700-1.30 mg/dL Glomerular Filtration Rate Calc 39 >90 mL/min BUN/Creatinine Ratio 19.6 10.0-20.0 Serum Glucose 150 H 74-106 mg/dL Calcium Level 9.3 8.7-10.4 mg/dL Troponin I High Sensitivity 11 </=54 ng/L B-Type Natriuretic Peptide 112.28 0-100 pg/mL Assessment IMP: 1) Hemodynamically mediated PRATIK/VMN, possible prerenal state 2) CKD stage IIIB 3) diabetes 4) hypertension 5) COPD REC: - Mr. Mendiola with essentially stable GFR. His volume status appears to have improved since admission - agree with current plan of care - we will have ongoing outpatient follow up with in CKD Clinic after discharge - discussed with patient and his at bedside Thank you for the consultation Plan discussed with: Patient, Spouse JOSEY SYED MD Oct 17, 2024 11:03
--- NOTE | 2024-10-17 11:28 | DVHPN2 ---
Subjective He feels better He is still on 2 L nasal cannula Less congested Changes from previous H/P or p: Changes Respiratory: Cough, Shortness of breath, Wheezing Objective Vitals Vital Signs Date Time Temp Pulse Resp B/P (MAP) Pulse Ox O2 Delivery O2 Flow Rate FiO2 10/17/24 10:34 137/60 10/17/24 09:57 72 16 94 10/17/24 09:51 Nasal Cannula* 3 32 10/17/24 09:00 97.9 97.9 Intake/Output Intake and Output 10/17/24 07:00 Intake Total 1770 ml Output Total 800 ml Balance 970 ml Intake Oral 1520 ml IV Total 250 ml Output Urine Total 800 ml # Voids 5 General Appearance: Alert, Oriented X3, mild distress Lungs: Other (Diffuse wheezing) Cardiovascular: Regular rate, Normal S1 Abdomen: Normal bowel sounds, Soft, No tenderness Medications Current Medications Medications Dose Ordered Sig/Marie Route Start Time Stop Time Status Last Admin Dose Admin Nitroglycerin 0.4 mg Q5MINP PRN SL 10/13/24 13:45 Morphine Sulfate 2 mg Q30M PRN IV 10/13/24 13:45 Azithromycin 250 ml @ 125 mls/hr DAILY IV 10/14/24 10:00 10/17/24 10:34 125 MLS/HR Pantoprazole Sodium 40 mg DAILY@0600 PO 10/14/24 06:00 10/17/24 05:59 40 MG Ondansetron HCl 4 mg Q4HPRN PRN IV 10/13/24 13:45 Acetaminophen 650 mg Q6HP PRN PO 10/13/24 13:45 Apixaban 2.5 mg BID PO 10/13/24 22:00 10/17/24 10:34 2.5 MG Atorvastatin Calcium 80 mg HS PO 10/13/24 22:00 10/16/24 22:12 80 MG Levothyroxine Sodium 150 mcg QAM@0600 PO 10/14/24 06:00 10/17/24 05:59 150 MCG Diagnostic Test (Pha) 1 strip ACHS 10/13/24 17:00 10/17/24 06:07 1 STRIP Insulin Human Regular HS SC 10/13/24 22:00 10/16/24 22:04 4 UNITS Insulin Human Regular AC SC 10/13/24 17:00 10/16/24 17:14 3 UNITS Dextrose 50 ml UD PRN IV 10/13/24 14:00 Insulin Glargine 15 units BID@0700,2200 SC 10/15/24 22:00 10/16/24 22:03 15 UNITS Albuterol 2.5 mg Q4HR NEB 10/15/24 14:00 10/17/24 09:51 2.5 MG Ipratropium [place] 0.5 mg Q4HR NEB 10/15/24 14:00 10/17/24 06:15 0.5 MG Acetylcysteine 200 mg Q8HR NEB 10/15/24 14:00 10/18/24 13:59 10/17/24 06:15 200 MG Patient Own Medication 50 mg DAILY PO 10/16/24 10:00 10/16/24 11:00 50 MG Prednisone 40 mg DAILY PO 10/16/24 10:00 10/17/24 10:34 40 MG Furosemide 40 mg DAILY IV 10/17/24 10:00 10/17/24 10:34 40 MG Laboratory Results Laboratory Tests 10/17/24 05:18 Chemistry Test 10/17/24 05:18 Calcium Level 9.6 mg/dL (8.7-10.4) Magnesium Level 2.7 mg/dL (1.6-2.6) H Phosphorus Level 3.4 mg/dL (2.4-5.1) Urinalysis Test 10/13/24 12:45 Urine Color Light-yellow (Yellow) Urine Clarity Clear (Clear) Urine pH 5.0 (5.0-9.0) Urine Specific [place] 1.009 (1.001-1.035) Urine Protein Negative (Negative) Urine Ketones Negative (Negative) Urine Blood Negative /uL (Negative) Urine Nitrite Negative (Negative) Urine Bilirubin Negative (Negative) Urine Urobilinogen Normal mg/dL (Negative) Urine Leukocyte Esterase Negative /uL (Negative) Urine RBC None seen /hpf (0 - 3) Urine Microscopic WBC 1 /HPF (0-3) Urine Squamous Epithelial Cells Few /hpf (<5) Urine Bacteria Few /hpf (None Seen) H Urine Hyaline Casts Few /lpf (0 - 2) Urine Glucose Normal mg/dL (Normal) Assessment/Plan Assessment/Plan Acute hypoxic respiratory failure COPD exacerbation Chronic respiratory failure on home O2 Diastolic heart failure Type 2 diabetes Hypertension Hypothyroidism Chronic kidney disease Hypernatremia Paroxysmal atrial fibrillation Plan Admit to telemetry Oxygen Solu-Medrol IV IV Zithromax Med neb treatments as needed Resume the home medications Monitor closely Full code Discussed with the patient and his at the bedside 10/14/2024: Continue oxygen as needed Med nebs as needed IV Zithromax IV steroids Pulmonary consultation Add Lantus for better blood glucose control 10/15/2024: Continue the current management Oxygen as needed IV antibiotics IV steroids Incentive spirometry Monitor closely 10/16/24: Resume Lasix, 40 mg IV qd Nephrology consult Monitor closely Zithromax Afib: Eliquis COPD: Prednisone Physical therapy 10/17/2024: Continue IV Lasix Continue steroids Continue IV antibiotics Oxygen as needed Physical therapy Incentive spirometry Plan discussed with: Patient, Spouse Date of Service: Oct 17, 2024 Billing Provider: JAMES JAMES MD Common Visit Codes: NOT BILLABLE JAMES JAMES MD Oct 17, 2024 11:28
--- NOTE | 2024-10-17 13:23 | DVHPN2 ---
Progress Note - Dictate Date Seen: Oct 17, 2024 Medical Necessity Reason Pt with a Central, PICC or Fol: No Subjective Patient seen and examined Overnight events reviewed vital signs Vital Sign Date Time Temp Pulse Resp B/P (MAP) Pulse Ox O2 Delivery O2 Flow Rate FiO2 10/17/24 10:34 137/60 10/17/24 09:57 72 16 94 10/17/24 09:51 Nasal Cannula* 3 32 10/17/24 09:00 97.9 97.9 Total Intake and Output 10/16/24 10/16/24 10/17/24 15:00 23:00 07:00 Intake Total 730 ml 240 ml 800 ml Output Total 800 ml Balance 730 ml -560 ml 800 ml medications Current Medications Medications Dose Ordered Sig/Marie Route Start Time Stop Time Status Last Admin Dose Admin Nitroglycerin 0.4 mg Q5MINP PRN SL 10/13/24 13:45 Morphine Sulfate 2 mg Q30M PRN IV 10/13/24 13:45 Azithromycin 250 ml @ 125 mls/hr DAILY IV 10/14/24 10:00 10/17/24 10:34 125 MLS/HR Pantoprazole Sodium 40 mg DAILY@0600 PO 10/14/24 06:00 10/17/24 05:59 40 MG Ondansetron HCl 4 mg Q4HPRN PRN IV 10/13/24 13:45 Acetaminophen 650 mg Q6HP PRN PO 10/13/24 13:45 Apixaban 2.5 mg BID PO 10/13/24 22:00 10/17/24 10:34 2.5 MG Atorvastatin Calcium 80 mg HS PO 10/13/24 22:00 10/16/24 22:12 80 MG Levothyroxine Sodium 150 mcg QAM@0600 PO 10/14/24 06:00 10/17/24 05:59 150 MCG Diagnostic Test (Pha) 1 strip ACHS 10/13/24 17:00 10/17/24 11:28 1 STRIP Insulin Human Regular HS SC 10/13/24 22:00 10/16/24 22:04 4 UNITS Insulin Human Regular AC SC 10/13/24 17:00 10/16/24 17:14 3 UNITS Dextrose 50 ml UD PRN IV 10/13/24 14:00 Insulin Glargine 15 units BID@0700,2200 SC 10/15/24 22:00 10/16/24 22:03 15 UNITS Albuterol 2.5 mg Q4HR NEB 10/15/24 14:00 10/17/24 09:51 2.5 MG Ipratropium [place] 0.5 mg Q4HR NEB 10/15/24 14:00 10/17/24 06:15 0.5 MG Acetylcysteine 200 mg Q8HR NEB 10/15/24 14:00 10/18/24 13:59 10/17/24 06:15 200 MG Patient Own Medication 50 mg DAILY PO 10/16/24 10:00 10/16/24 11:00 50 MG Prednisone 40 mg DAILY PO 10/16/24 10:00 10/17/24 10:34 40 MG Furosemide 40 mg DAILY IV 10/17/24 10:00 10/17/24 10:34 40 MG laboratory and microbiology Laboratory Tests 10/17/24 05:18 Test 10/17/24 05:18 Range/Units Serum Glucose 115 H 74-106 mg/dL Assessment/Plan Impression Acute hypoxemic respiratory failure Acute COPD exacerbation Former smoker CHF Patient seen and examined Events Low oxygen requirements On room air No distress Labs and imaging reviewed Management Supplemental oxygen as needed Titrate to maintain sats 90% or above Incentive spirometry Continue antibiotics F/u cultures Bronchodilators Steroids Monitor renal function Monitor electrolytes Supplement as needed DVT prophylaxis Dietary Evaluation Review Comments: 1) Encourage optimal PO intake 2) Collect HbA1c 3) Continue to monitor I&O, labs, and skin integrity 4) F/u with pulmonology, cardiology, and nephrology Expected Outcomes/Goals: 1) appetite and labs to improve 2) f/u in 5 days Plan discussed with: Other (rn) LEANNE MIRELES MD Oct 17, 2024 13:23
[2024-10-18] VITALS (14 sets, daily range): BP systolic 129–156; BP diastolic 73–83; PULSE 18–84; RESP 16–20; TEMP 97.4–98; O2SAT 84–99
[2024-10-18 08:29] LABS: Chloride 104 mmol/L (98-107); Potassium 4.3 mmol/L (3.5-5.1); Sodium 145 mmol/L (136-145)
[2024-10-18 08:30] LABS: Anion Gap 7 (5-15)
[2024-10-18 08:31] LABS: Calcium 9.9 mg/dL (8.7-10.4)
[2024-10-18 08:36] LABS: BUN/Creatinine Ratio 19.8 (10.0-20.0); Glucose 91 mg/dL (74-106)
[2024-10-18 08:38] LABS: Blood Urea Nitrogen 34 mg/dL (9-23); Carbon Dioxide 34 mmol/L (20-31)
--- NOTE | 2024-10-18 10:30 | DVHPNRES ---
Progress Note Date Seen: Oct 18, 2024 Resident Creating Document: RADAMES CASE RESIDENT Medical Necessity Reason Pt with a Central, PICC or Fol: No Subjective Patient reports: Feels better Review of Systems: HEENT:Normal, CVS:Normal, RESPIRATORY:Abnormal (on NC), GI:Normal, :Normal, MSK:Abnormal (+ve pedal edema), NEURO:Normal Objective vital signs Vital Sign Date Time Temp Pulse Resp B/P (MAP) Pulse Ox O2 Delivery O2 Flow Rate FiO2 10/18/24 09:16 156/73 10/18/24 09:15 97.9 74 20 84 97.9 10/18/24 08:00 Nasal Cannula* 3 32 Total Intake and Output 10/17/24 10/17/24 10/18/24 15:00 23:00 07:00 Intake Total 250 ml 750 ml 350 ml Balance 250 ml 750 ml 350 ml medications Current Medications Medications Dose Ordered Sig/Marie Route Start Time Stop Time Status Last Admin Dose Admin Nitroglycerin 0.4 mg Q5MINP PRN SL 10/13/24 13:45 Morphine Sulfate 2 mg Q30M PRN IV 10/13/24 13:45 Azithromycin 250 ml @ 125 mls/hr DAILY IV 10/14/24 10:00 10/18/24 09:15 125 MLS/HR Pantoprazole Sodium 40 mg DAILY@0600 PO 10/14/24 06:00 10/18/24 05:50 40 MG Ondansetron HCl 4 mg Q4HPRN PRN IV 10/13/24 13:45 Acetaminophen 650 mg Q6HP PRN PO 10/13/24 13:45 Apixaban 2.5 mg BID PO 10/13/24 22:00 10/18/24 09:16 2.5 MG Atorvastatin Calcium 80 mg HS PO 10/13/24 22:00 10/17/24 21:11 80 MG Levothyroxine Sodium 150 mcg QAM@0600 PO 10/14/24 06:00 10/18/24 05:50 150 MCG Diagnostic Test (Pha) 1 strip ACHS 10/13/24 17:00 10/18/24 05:54 1 STRIP Insulin Human Regular HS SC 10/13/24 22:00 10/17/24 21:31 6 UNITS Insulin Human Regular AC SC 10/13/24 17:00 10/17/24 17:54 6 UNITS Dextrose 50 ml UD PRN IV 10/13/24 14:00 Insulin Glargine 15 units BID@0700,2200 SC 10/15/24 22:00 10/17/24 21:32 15 UNITS Albuterol 2.5 mg Q4HR NEB 10/15/24 14:00 10/18/24 10:23 2.5 MG Ipratropium [place] 0.5 mg Q4HR NEB 10/15/24 14:00 10/18/24 10:23 0.5 MG Acetylcysteine 200 mg Q8HR NEB 10/15/24 14:00 10/18/24 13:59 10/18/24 07:26 200 MG Patient Own Medication 50 mg DAILY PO 10/16/24 10:00 10/18/24 09:19 50 MG Prednisone 40 mg DAILY PO 10/16/24 10:00 10/18/24 09:16 40 MG Furosemide 40 mg DAILY IV 10/17/24 10:00 10/18/24 09:16 40 MG Examination: GENERAL:Normal, HEENT:Normal, NECK:Normal, LUNGS:Abnormal (crackles, no wheezing, on 2 L NC, no home oxygen at baseline. ), CVS:Normal, ABDOMEN:Normal, MSK:Abnormal (pitting edema. ), SKIN:Normal, NEURO:Normal laboratory and microbiology Laboratory Tests 10/18/24 06:48 10/17/24 05:18 Test 10/18/24 06:48 Range/Units Serum Glucose 91 74-106 mg/dL Labs and/or images reviewed: Labs reviewed by me, Image(s) reviewed by me Problem List/Assessment/Plan Problem List/Assessment/Plan Mr. Mendiola, an 84-year-old male with a history of stage IIIB chronic kidney disease (CKD), hypertension, dyslipidemia, heart failure, atrial fibrillation, diabetes, and COPD, presented for evaluation and management of worsening dyspnea and hypoxia. He is being followed by Dr. Hester in the outpatient CKD Clinic. The consultation was requested for ongoing inpatient management of his kidney function. Upon evaluation, he was awake, alert, and in no acute distress, with his at the bedside. Mr. Mendiola reported that his shortness of breath had improved since admission. Assessment: #Hemodynamically mediated PRATIK/VMN, possible prerenal cause. #CKD stage IIIB at baseline follows Dr. Oneil. #Acute on chronic Heart failure HFpEF #COPD exacerbation on steroid. #Acute hypoxic respiratory failure. #Atrial fibrillation on eliquis 2.5 bid. #Diabetes, on oral meds not on insulin #H/o Essential Hypertension #Dyslipidemia on statin #Hypermagnesemia, 2.7 Findings: #Cr. 1.68>1.72 (baseline around 1.6) #GFR: 39>38 #24 hour I/O: 1770-800=(+970) #U/a: unremarkable. #Positive side of fluid balance, still on 3 L NC, hypertensive and Hemodynamically stable. Plan: 1. Check US renal with bladder. 2. IV lasix 40 daily , close I/O, needs aggressive diuresis. 3. Daily labs, CMP, Mg, K, Phos and correct electrolytes as needed to keep Mg>2, K>4. 4. Ongoing outpatient follow up with Dr. Oneil in CKD Clinic after discharge. 5. Other management as per primary team. Thank you for the opportunity to follow up on your patient. Please reach out to Nephrology in case of any concerns. Discussed with Dr. Boogie. Addendum Patient seen and examined, plan discussed with resident. Agree with above, we will follow closely Recommend repeat chest x-ray to assess diuretic titration Plan discussed with: Patient, Spouse, Other (primary team, RN) Dietary Evaluation Review Comments: 1) Encourage optimal PO intake 2) Collect HbA1c 3) Continue to monitor I&O, labs, and skin integrity 4) F/u with pulmonology, cardiology, and nephrology Expected Outcomes/Goals: 1) appetite and labs to improve 2) f/u in 5 days RADAMES CASE Oct 18, 2024 10:30 DANIEL BOOGIE MD Oct 18, 2024 16:00
--- NOTE | 2024-10-18 14:12 | DVHDS2 ---
Discharge Summary Date of Admission Oct 13, 2024 at 13:31 Date of Discharge: Oct 18, 2024 Labs/Diagnostic Data: Laboratory Results Test 10/18/24 12:08 10/18/24 06:48 10/17/24 05:18 10/14/24 05:39 POC Glucose 161 mg/dl (70-106) Sodium Level 145 mmol/L (136-145) Potassium Level 4.3 mmol/L (3.5-5.1) Chloride Level 104 mmol/L (98-107) Carbon Dioxide Level 34 mmol/L (20-31) Anion Gap 7 (5-15) Blood Urea Nitrogen 34 mg/dL (9-23) Creatinine 1.72 mg/dL (0.700-1.30) Glomerular Filtration Rate Calc 38 mL/min (>90) BUN/Creatinine Ratio 19.8 (10.0-20.0) Serum Glucose 91 mg/dL (74-106) Calcium Level 9.9 mg/dL (8.7-10.4) White Blood Count 13.9 10^3/uL (4.4-10.8) Red Blood Count 4.05 10^6/uL (4.5-5.90) Hemoglobin 12.9 g/dL (13.5-17.5) Hematocrit 37.2 % (41.0-53.0) Mean Corpuscular Volume 91.9 fL (80.0-100.0) Mean Corpuscular Hemoglobin 31.8 pg (28.0-32.0) Mean Corpuscular Hemoglobin Concent 34.6 g/dL (32.0-36.0) Red Cell Distribution Width 15.1 % (11.8-14.3) Platelet Count 245 10^3/uL (140-450) Mean Platelet Volume 8.1 fL (6.9-10.8) Neutrophils (%) (Auto) 67.5 % (37.0-80.0) Lymphocytes (%) (Auto) 24.7 % (10.0-50.0) Monocytes (%) (Auto) 7.7 % (0.0-12.0) Eosinophils (%) (Auto) 0.0 % (0.0-7.0) Basophils (%) (Auto) 0.1 % (0.0-2.0) Neutrophils # (Auto) 9.4 10 ^3/uL (1.6-8.6) Lymphocytes # (Auto) 3.4 10 ^3/uL (0.4-5.4) Monocytes # (Auto) 1.1 10 ^3/uL (0-1.3) Eosinophils # (Auto) 0 10 ^3/uL (0-0.8) Basophils # (Auto) 0 10 ^3/uL (0-0.2) Nucleated Red Blood Cells 0.0 % Phosphorus Level 3.4 mg/dL (2.4-5.1) Magnesium Level 2.7 mg/dL (1.6-2.6) Vitamin D 25-Hydroxy 46.2 ng/mL (30.0-100) Thyroid Stimulating Hormone (TSH) 0.37 uIU/mL (0.55-4.78) Test 10/13/24 14:00 10/13/24 12:45 10/13/24 10:40 10/13/24 10:32 Troponin I High Sensitivity 11 ng/L (</=54) Urine Color Light-yellow (Yellow) Urine Clarity Clear (Clear) Urine pH 5.0 (5.0-9.0) Urine Specific [place] 1.009 (1.001-1.035) Urine Protein Negative (Negative) Urine Ketones Negative (Negative) Urine Blood Negative /uL (Negative) Urine Nitrite Negative (Negative) Urine Bilirubin Negative (Negative) Urine Urobilinogen Normal mg/dL (Negative) Urine Leukocyte Esterase Negative /uL (Negative) Urine RBC None seen /hpf (0 - 3) Urine Microscopic WBC 1 /HPF (0-3) Urine Squamous Epithelial Cells Few /hpf (<5) Urine Bacteria Few /hpf (None Seen) Urine Hyaline Casts Few /lpf (0 - 2) Urine Glucose Normal mg/dL (Normal) Influenza Type A Antigen Negative (Negative) Influenza Type B Antigen Negative (Negative) SARS-CoV-2 Antigen (Rapid) Negative (NEGATIVE) B-Type Natriuretic Peptide 112.28 pg/mL (0-100) Other Laboratory Tests 10/18/24 06:48 10/17/24 05:18 Brief Hx & Hospital Course: Final diagnoses: Acute hypoxic respiratory failure COPD exacerbation Chronic respiratory failure on home O2 Diastolic heart failure Type 2 diabetes Hypertension Hypothyroidism Chronic kidney disease Hypernatremia Paroxysmal atrial fibrillation He was treated with O2, Med Nebs, IV antibiotics and steroids He improved slowly Lasix was also given He is better and ready to go home He had home O2 Discharge on Prednisone and doxycycline Resume the home meds Condition at Discharge: Stable Final Diagnosis/Problems List Acute hypoxic respiratory failure COPD exacerbation Chronic respiratory failure on home O2 Diastolic heart failure Type 2 diabetes Hypertension Hypothyroidism Chronic kidney disease Hypernatremia Paroxysmal atrial fibrillation Discharge Disposition: Home SNF Discharge Will this Physician continue t: No Discharge Instruct/Medications Diet: Consistent carbohydrate, Cardiac 2g Na,low cholest Activity: No Restrictions, As Tolerated Follow Up/Referral: PCP SAIDA Dr. Oneil as scheduled Medications: Prednisone & Doxycycline Resume home meds Discharge Statement: "Patient was advised to return to the ER or call 911 if any headaches, dizziness, shortness of breath, chest pain, abdominal pain, bleeding, fevers, or worsening of medical condition. Patient was counseled about treatment plan, medications, possible side effects, patientverbalized understanding. All questions were answered to the best of my ability. This discharge took greater then 30 minutes in planning, reviewing documentation, counseling the patient, and discussing with other team members." ASSESSMENT ASSESSMENT Assessment Acute hypoxic respiratory failure COPD exacerbation Chronic respiratory failure on home O2 Diastolic heart failure Type 2 diabetes Hypertension Hypothyroidism Chronic kidney disease Hypernatremia Paroxysmal atrial fibrillation Date of Service: Oct 18, 2024 Billing Provider: JAMES JAMES MD Common Visit Codes: NOT BILLABLE JAMES JAMES MD Oct 18, 2024 14:12
--- NOTE | 2024-10-18 14:16 | DVH ---
INDICATION: PRATIK likely postrenal obstruction. TECHNIQUE: Multiple real-time sonographic images of the kidneys and bladder were obtained. COMPARISON: None FINDINGS: RIGHT kidney measures 10.3 cm in length. No hydronephrosis. LEFT kidney measures 10.7 cm in length. No hydronephrosis. Bilateral kidneys demonstrate decreased cortical thickness and increased echogenicity. No large intraluminal masses are seen in the bladder. IMPRESSION: No hydronephrosis. Possible chronic medical renal disease.
[2024-10-18] MEDS ORDERED: DOXY1CAP57 PO (14:26)
[2024-10-18] MEDS ORDERED: METH4PAK PO (14:26)
[2024-10-18 14:54] LABS: Hematocrit 42.7 % (41.0-53.0); Hemoglobin 13.8 g/dL (13.5-17.5); Mean Corpuscular Hemoglobin 30.1 pg (28.0-32.0); Mean Corpuscular Hgb Conc. 32.4 g/dL (32.0-36.0); Mean Corpuscular Volume 92.9 fL (80.0-100.0); Platelet Count (auto) 280 10^3/uL (140-450); Red Cell Distribution Width 14.9 % (11.8-14.3); White Blood Cell 17.2 10^3/uL (4.4-10.8)
[2024-10-18 15:16] LABS: Band Neutrophils % (manual) 0; Basophils % (manual) 0 (0.0-2.0); Blast Cells 0; Eosinophils % (manual) 0 (0-7); Metamyelocytes % 0; Myelocytes % 0; Promyelocytes % 0; Reactive Lymphocytes 0
[2024-10-18 15:55] LABS: Anisocytosis Slight; Lymphocytes % (manual) 28 (10.0-50.0); Monocytes % (manual) 11 (0-12); Platelet Estimate Adequate
[2024-10-18] MEDS ORDERED: FUROSEMIDE 40 MG/4 ML VIAL IV SCH (18:00)
--- NOTE | 2024-10-18 18:14 | DVHPN2 ---
Progress Note - Dictate Date Seen: Oct 18, 2024 Medical Necessity Reason Pt with a Central, PICC or Fol: No Subjective Patient seen and examined at bedside. Remains on supplemental oxygen Overnight events reviewed. vital signs Vital Sign Date Time Temp Pulse Resp B/P (MAP) Pulse Ox O2 Delivery O2 Flow Rate FiO2 10/18/24 16:58 98.0 80 16 129/83 (98) 96 98.0 10/18/24 14:36 Nasal Cannula* 3 32 Total Intake and Output 10/17/24 10/17/24 10/18/24 15:00 23:00 07:00 Intake Total 250 ml 750 ml 350 ml Balance 250 ml 750 ml 350 ml objective Gen.: Patient lying in bed in no apparent distress. On supplemental oxygen. Head: Normocephalic, atraumatic. Eyes: EOMI/PERRLA. Ears: Normal hearing. Normal anatomy. Neck/trachea: Trachea midline, supple. Nose: Normal external anatomy. Mouth: Moist mucous membranes. Chest: Decreased air entry bilaterally. No wheezing or rhonchi. Cardiovascular: Positive S1, positive S2. Regular rate and rhythm. Abdomen: Positive bowel sounds in all 4 quadrants. Soft, non-tender, non- distended. : Deferred. Rectal: Deferred. Skin: Warm, dry. Intact. Extremities: 2+ radial pulses bilaterally. No lower extremity edema. Neuro: Awake, alert, oriented x3. No gross motor or sensory deficits. Cranial nerves II through XII intact. Gait not assessed. 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 Labs and imaging reviewed. Rest of plan as noted below Plan: Supplemental oxygen Titrate to keep O2 sats above 92%. Continue bronchodilators. Continue steroids Accu-Cheks, ISS. Monitor renal function. Monitor electrolytes. Supplement as necessary. Monitor ins and outs. DVT prophylaxis. Prognosis: Guarded given patient's multiple co-morbidities. Rest of plan per hospitalist and other consultants. Thank you, Dr. Hutchinson, for allowing me to participate in this patient's care. Further recommendations will depend on the patient's clinical course. Please do not hesitate to contact me if you have any questions or concerns. This medical document was created using an electronic medical record system with [employer] dictation system. Although these documentations are being carefully reviewed, there may still be some phonetic and typographical changes. The errors are purely typographical, due to imperfection on the software program, and do not reflect any compromise in the patient's medical care. Dietary Evaluation Review Comments: 1) Encourage optimal PO intake 2) Collect HbA1c 3) Continue to monitor I&O, labs, and skin integrity 4) F/u with pulmonology, cardiology, and nephrology Expected Outcomes/Goals: 1) appetite and labs to improve 2) f/u in 5 days Plan discussed with: Other (NISSA Turner, MD Hutchinson) RAJANI LEES MD Oct 18, 2024 18:14
[2024-10-19] MEDS ORDERED: FUROSEMIDE 40 MG/4 ML VIAL IV SCH (10:00)
== END 2024-10-18 17:44 | disposition home or self-care (01) | DRG 291 ==
LOC: EDBD 09:54 → ER 09:54 → OVERFLOW 13:31 → TELE-WESTW 13:41
PROVIDERS: ADMIT Internal Medicine Geriatric Medicine; ATTEND Internal Medicine Geriatric Medicine
DX: I13.0 Hypertensive heart and chronic kidney disease with heart failure and stage 1 through stage 4 chronic kidney disease, or unspecified chronic kidney disease (principal); I50.33 Acute on chronic diastolic (congestive) heart failure; J96.21 Acute and chronic respiratory failure with hypoxia; J44.1 Chronic obstructive pulmonary disease with (acute) exacerbation; E87.0 Hyperosmolality and hypernatremia; E03.9 Hypothyroidism, unspecified; I48.0 Paroxysmal atrial fibrillation; Z20.822 Contact with and (suspected) exposure to COVID-19; N18.32 Chronic kidney disease, stage 3b; E83.41 Hypermagnesemia; E11.22 Type 2 diabetes mellitus with diabetic chronic kidney disease; E78.5 Hyperlipidemia, unspecified; Z87.891 Personal history of nicotine dependence; Z99.81 Dependence on supplemental oxygen; Z95.0 Presence of cardiac pacemaker
CPT/HCPCS: 36415; 71045; 76775; 80048; 81001; 82306; 82962; 83735; 83880; 84100; 84443; 84484; 85007; 85025; 85027; 87426; 87804; 93005; 94640; 94667; 94668; 96372; 96374; 96375; 97110; 97116; 97163; 97530; G0378; J1815